=== PATIENT | female | born 1950 | race Caucasian/White ===

== ENCOUNTER 2023-08-05 14:02 | Outpatient (OUT) | payer MEDICARE, SELFPAY ==
--- NOTE | 2023-08-05 | XR_ITS ---
The [place] [address] Patient Name: GOYO FARLEY MRN: [id number] date: 1950 Sex: F Assigned Patient Location: Current Patient Location: Accession/Order Number: [id number] Exam Date: 08/05/2023 14:42 Report Date: 08/05/2023 15:54 At the request of: ILDA BREEN Procedure: XR foot LT min 3V STUDY: XR foot LT min 3V, [id number] HISTORY: RIGHT FOOT PAIN COMPARISON: None FINDINGS/IMPRESSION: Status post amputation of the first and second digits. There is no acute appearing osteolysis to suggest active osteomyelitis. If there is clinical concern for radiographically occult osteomyelitis then recommend MRI of the foot. Mild osteoarthritis at the first tarsometatarsal joint. Diffuse osseous demineralization. Extensive vascular calcifications are present. Mild Achilles insertional enthesopathy. Electronically authenticated by: ARPAN TRUJILLO Date: 08/05/2023 15:54
--- NOTE | 2023-08-05 08:20 | XR_ITS ---
The [place] [address] Patient Name: GOYO FARLEY MRN: [id number] date: 1950 Sex: F Assigned Patient Location: Current Patient Location: Accession/Order Number: [id number] Exam Date: 08/05/2023 14:00 Report Date: 08/05/2023 15:54 At the request of: ILDA BREEN Procedure: XR foot RT min 3V STUDY: XR foot LT min 3V, [id number] HISTORY: RIGHT FOOT PAIN COMPARISON: None FINDINGS/IMPRESSION: Status post amputation of the first and second digits. There is no acute appearing osteolysis to suggest active osteomyelitis. If there is clinical concern for radiographically occult osteomyelitis then recommend MRI of the foot. Mild osteoarthritis at the first tarsometatarsal joint. Diffuse osseous demineralization. Extensive vascular calcifications are present. Mild Achilles insertional enthesopathy. Electronically authenticated by: ARPAN TRUJILLO Date: 08/05/2023 15:54
== END 2023-08-05 14:03 | disposition home or self-care (01) ==
LOC: WC 14:03
PROVIDERS: PCP Podiatrist Foot & Ankle Surgery; Visit Provider Podiatrist Foot & Ankle Surgery
DX: M79.671 Pain in right foot (principal); L89.610 Pressure ulcer of right heel, unstageable; E11.21 Type 2 diabetes mellitus with diabetic nephropathy; E11.65 Type 2 diabetes mellitus with hyperglycemia; I82.401 Acute embolism and thrombosis of unspecified deep veins of right lower extremity; M81.6 Localized osteoporosis [Lequesne]; M17.9 Osteoarthritis of knee, unspecified
CPT/HCPCS: 73630; G0463

== ENCOUNTER 2023-09-16 13:24 | Outpatient (OUT) | payer MEDICARE, SELFPAY | END 2023-09-16 13:25 | disposition home or self-care (01) | LOC: WC 13:24 | PROVIDERS: PCP Podiatrist Foot & Ankle Surgery; Visit Provider Podiatrist Foot & Ankle Surgery | DX: E11.621 Type 2 diabetes mellitus with foot ulcer (principal); L97.412 Non-pressure chronic ulcer of right heel and midfoot with fat layer exposed | CPT/HCPCS: 11042 ==

== ENCOUNTER 2023-10-01 14:19 | Outpatient (OUT) | payer MEDICARE, SELFPAY ==
--- NOTE | 2023-10-01 14:21 | CA_ITS ---
The [facility] Test Date: 2023-10-01 Pat Name: GOYO FARLEY Department: Room: - Gender: Female Solutions Manager: Estefani Hammonds : 1950 Requested By: ILDA BREEN Order Number: [id number] Reading MD: HORTENCIA JAIME Interpretive Statements Biphasic doppler waveforms PVR waveforms with normal upstroke, amplitude and dicrotic notch. Right: - no significant pressure gradient between cuffs - abnormal ROSALIA Left: - no significant pressure gradient between cuffs - abnormal ROSALIA Impression - elevated indices left DP and B/L PT consistent with calcified, nocompressible arterial suero, which may underestimate the degree of arterial disease present - normal arterial evaluation of the lower extremities without hemodynamic impairment of the B/L lower extremities at rest. - evaluation is nondiagnostic due to elevated B/L ROSALIA and inability to fully compress the arteries at all level Electronically Signed On 10-02-2023 7:19:09 EDT by HORTENCIA JAIME
== END 2023-10-01 14:20 | disposition home or self-care (01) ==
LOC: CARD 14:19
PROVIDERS: PCP Podiatrist Foot & Ankle Surgery; Visit Provider Podiatrist Foot & Ankle Surgery
DX: R09.89 Other specified symptoms and signs involving the circulatory and respiratory systems (principal); I73.9 Peripheral vascular disease, unspecified
CPT/HCPCS: 93923

== ENCOUNTER 2023-10-14 11:27 | Outpatient (OUT) | payer MEDICARE, SELFPAY | END 2023-10-14 11:28 | disposition home or self-care (01) | LOC: WC 11:28 | PROVIDERS: PCP Podiatrist Foot & Ankle Surgery; Visit Provider Podiatrist Foot & Ankle Surgery | DX: E11.621 Type 2 diabetes mellitus with foot ulcer (principal); L97.412 Non-pressure chronic ulcer of right heel and midfoot with fat layer exposed | CPT/HCPCS: G0463 ==

== ENCOUNTER 2023-11-04 13:41 | Outpatient (OUT) | payer MEDICARE, SELFPAY | END 2023-11-04 13:42 | disposition home or self-care (01) | LOC: WC 13:42 | PROVIDERS: PCP Podiatrist Foot & Ankle Surgery; Visit Provider Podiatrist Foot & Ankle Surgery | DX: E11.621 Type 2 diabetes mellitus with foot ulcer (principal); L97.412 Non-pressure chronic ulcer of right heel and midfoot with fat layer exposed | CPT/HCPCS: 11042 ==

== ENCOUNTER 2023-11-28 11:04 | Outpatient (OUT) | payer MEDICARE, SELFPAY | END 2023-11-28 11:05 | disposition home or self-care (01) | LOC: WC 11:04 | PROVIDERS: PCP Podiatrist Foot & Ankle Surgery; Visit Provider Podiatrist Foot & Ankle Surgery | DX: E11.621 Type 2 diabetes mellitus with foot ulcer (principal); L97.412 Non-pressure chronic ulcer of right heel and midfoot with fat layer exposed; M86.471 Chronic osteomyelitis with draining sinus, right ankle and foot | CPT/HCPCS: G0463 ==

== ENCOUNTER 2023-12-02 12:51 | Outpatient (OUT) | payer MEDICARE, SELFPAY ==
[2023-12-02 14:06] LABS: Basophils Percent Auto 0.6 % (0.2-2.0); Eosinophils Absolute Auto 0.2 10^3/uL (0.0-0.7); Eosinophils Percent Auto 2.4 % (0.9-7.0); Hematocrit 36.1 % (36.0-48.0); Immature Granulocytes Abs Auto 0.01 10^3/uL (0.00-0.03); Immature Granulocytes Pct Auto 0.1 % (0.0-0.5); Lymphocytes Absolute Auto 1.3 10^3/uL (1.2-3.8); Lymphocytes Percent Auto 18.7 % (20.5-60.0); Mean Corpuscular HGB Conc 33.2 g/dL (29.9-35.2); Mean Corpuscular Hemoglobin 27.4 pg (26.7-34.0); Mean Corpuscular Volume 82.4 fL (81.0-99.0); Mean Platelet Volume 9.7 fL (9.5-13.5); Monocytes Absolute Auto 0.4 10^3/uL (0.3-0.8); Monocytes Percent Auto 5.7 % (1.7-12.0); Neutrophils Absolute Auto 4.8 10^3/uL (1.4-6.5); Neutrophils Percent Auto 72.5 % (43.0-75.0); Platelet Count 144 10^3/uL (150-450); Red Blood Count 4.38 10^6/uL (4.20-5.40); White Blood Count 6.7 10^3/uL (4.0-11.0)
[2023-12-02 14:44] LABS: Partial Thromboplastin Time 28.4 sec (22.3-36.2); Prothrombin Time 9.8 sec (9.0-11.6)
[2023-12-02 14:54] LABS: INR <0.93
[2023-12-02 17:03] LABS: Anion Gap 10.3; BUN Creatinine Ratio 19.3; Calcium 9.5 mg/dL (8.5-10.1); Carbon Dioxide 30.7 mmol/L (21.0-32.0); Chloride 98 mmol/L (98-107); Estimated GFR (African America 57 (>=60); Estimated GFR (Non-African Ame 47 (>=60); Glucose 268 mg/dL (74-106); Sodium 135 mmol/L (136-145)
[2023-12-02 17:14] LABS: Alanine Aminotransferase 24 U/L (14-59); Albumin Globulin Ratio 0.7; Albumin Level 3.1 g/dL (3.4-5.0); Alkaline Phosphatase 125 U/L (46-116); Aspartate Amino Transferase 19 U/L (15-37); Bilirubin Direct 0.1 mg/dL (0.0-0.2); Bilirubin Total 0.6 mg/dL (0.2-1.0); Globulin 4.2 g/dL; Total Protein 7.3 g/dL (6.4-8.2)
== END 2023-12-02 12:52 | disposition home or self-care (01) ==
PROVIDERS: PCP Internal Medicine; Visit Provider Podiatrist Foot & Ankle Surgery
DX: Z01.812 Encounter for preprocedural laboratory examination (principal); L97.519 Non-pressure chronic ulcer of other part of right foot with unspecified severity; M86.671 Other chronic osteomyelitis, right ankle and foot
CPT/HCPCS: 80048; 80076; 85025; 85610; 85730

== ENCOUNTER 2023-12-05 13:01 | Outpatient (OUT) | payer MEDICARE, SELFPAY ==
--- NOTE | 2023-12-04 14:16 | ECG_ITS ---
The [facility] Test Date: 2023-12-04 Pat Name: GOYO FARLEY Department: Room: - Gender: Female Engineer Intern: : 1950 Requested By: ILDA BREEN Order Number: [id number] Reading MD: HORTENCIA JAIME Measurements Intervals [place] Rate: 72 P: 73 [place]: 164 QRS: -51 QRSD: 139 T: 20 QT: 419 QTc: 461 Interpretive Statements SINUS RHYTHM RIGHT BUNDLE BRANCH BLOCK [120+ ms QRS DURATION, UPRIGHT V1, 40+ ms S IN I/aVL/V4/V5/V6] LEFT ANTERIOR FASCICULAR BLOCK [QRS AXIS <= -45, QR IN I, RS IN II] VOLTAGE CRITERIA FOR LVH [MEETS CRITERIA IN ONE OF: R(aVL), S(V1), R(V5), R(V5/V6)+S(V1)] No previous ECG available for comparison Electronically Signed On 12-05-2023 7:05:03 EST by HORTENCIA JAIME
== END 2023-12-05 13:02 | disposition home or self-care (01) ==
LOC: PST 13:01
PROVIDERS: PCP Internal Medicine; Visit Provider Podiatrist Foot & Ankle Surgery
DX: Z01.810 Encounter for preprocedural cardiovascular examination (principal); L97.519 Non-pressure chronic ulcer of other part of right foot with unspecified severity; M86.671 Other chronic osteomyelitis, right ankle and foot
CPT/HCPCS: 93005

== ENCOUNTER 2023-12-26 09:02 | Outpatient (OUT) | payer MEDICARE, SELFPAY | END 2023-12-26 09:03 | disposition home or self-care (01) | LOC: WC 09:02 | PROVIDERS: PCP Internal Medicine; Visit Provider Podiatrist Foot & Ankle Surgery | DX: E11.621 Type 2 diabetes mellitus with foot ulcer (principal); L97.412 Non-pressure chronic ulcer of right heel and midfoot with fat layer exposed | CPT/HCPCS: A6213; G0463 ==

== ENCOUNTER 2024-01-05 12:41 | Outpatient (OUT) | payer MEDICARE, SELFPAY ==
[2024-01-05 13:45] LABS: Basophils Percent Auto 0.3 % (0.2-2.0); Eosinophils Absolute Auto 0.2 10^3/uL (0.0-0.7); Eosinophils Percent Auto 3.3 % (0.9-7.0); Hematocrit 35.6 % (36.0-48.0); Hemoglobin 11.4 g/dL (12.0-16.0); Immature Granulocytes Abs Auto 0.03 10^3/uL (0.00-0.03); Immature Granulocytes Pct Auto 0.5 % (0.0-0.5); Lymphocytes Absolute Auto 1.6 10^3/uL (1.2-3.8); Lymphocytes Percent Auto 25.5 % (20.5-60.0); Mean Corpuscular Volume 84.4 fL (81.0-99.0); Mean Platelet Volume 9.5 fL (9.5-13.5); Monocytes Absolute Auto 0.5 10^3/uL (0.3-0.8); Monocytes Percent Auto 8.5 % (1.7-12.0); Neutrophils Absolute Auto 3.8 10^3/uL (1.4-6.5); Neutrophils Percent Auto 61.9 % (43.0-75.0); Platelet Count 177 10^3/uL (150-450); Red Blood Count 4.22 10^6/uL (4.20-5.40); Red Cell Distribution Width 14.7 % (11.0-15.0); White Blood Count 6.1 10^3/uL (4.0-11.0)
[2024-01-05 14:10] LABS: INR 0.95; Partial Thromboplastin Time 27.3 sec (22.3-36.2); Prothrombin Time 10.1 sec (9.0-11.6)
[2024-01-05 14:18] LABS: Anion Gap 8.6; BUN Creatinine Ratio 32.1; Calcium 9.4 mg/dL (8.5-10.1); Carbon Dioxide 34.6 mmol/L (21.0-32.0); Chloride 100 mmol/L (98-107); Estimated GFR (African America >60 (>=60); Estimated GFR (Non-African Ame 51 (>=60); Glucose 193 mg/dL (74-106); Potassium 4.2 mmol/L (3.5-5.1); Sodium 139 mmol/L (136-145)
[2024-01-06 14:19] LABS: Alanine Aminotransferase 26 U/L (14-59); Albumin Globulin Ratio 0.7; Albumin Level 2.9 g/dL (3.4-5.0); Alkaline Phosphatase 107 U/L (46-116); Aspartate Amino Transferase 21 U/L (15-37); Bilirubin Direct 0.1 mg/dL (0.0-0.2); Bilirubin Total 0.3 mg/dL (0.2-1.0); Globulin 4.1 g/dL
== END 2024-01-05 12:42 | disposition home or self-care (01) ==
LOC: PST 12:42
PROVIDERS: PCP Internal Medicine; Visit Provider Podiatrist Foot & Ankle Surgery
DX: Z01.812 Encounter for preprocedural laboratory examination (principal); L97.519 Non-pressure chronic ulcer of other part of right foot with unspecified severity; M86.671 Other chronic osteomyelitis, right ankle and foot
CPT/HCPCS: 80048; 80076; 85025; 85610; 85730

== ENCOUNTER 2024-01-19 12:47 | Observation (INO) | payer MEDICARE, SELFPAY ==
[2023-12-02 13:43] VITALS: BP 147/76; PULSE 69; RESP 16; TEMP 36.2; O2SAT 97; BMI 33.9
[2024-01-05 13:23] VITALS: BP 139/74; PULSE 82; RESP 20; TEMP 36.4; O2SAT 93; BMI 34.1
[2024-01-19] VITALS (17 sets, daily range): BP systolic 113–172; BP diastolic 49–109; PULSE 74–104; RESP 12–22; TEMP 36.1–36.7; O2SAT 91–98; BMI 34.4; BMI 34.1
[2024-01-19 06:26] LABS: Basophils Percent Auto 0.5 % (0.2-2.0); Eosinophils Absolute Auto 0.2 10^3/uL (0.0-0.7); Eosinophils Percent Auto 2.7 % (0.9-7.0); Hematocrit 33.8 % (36.0-48.0); Hemoglobin 10.8 g/dL (12.0-16.0); Immature Granulocytes Abs Auto 0.02 10^3/uL (0.00-0.03); Immature Granulocytes Pct Auto 0.3 % (0.0-0.5); Lymphocytes Absolute Auto 1.7 10^3/uL (1.2-3.8); Lymphocytes Percent Auto 26.2 % (20.5-60.0); Mean Corpuscular Hemoglobin 26.9 pg (26.7-34.0); Mean Corpuscular Volume 84.3 fL (81.0-99.0); Mean Platelet Volume 8.9 fL (9.5-13.5); Monocytes Absolute Auto 0.4 10^3/uL (0.3-0.8); Monocytes Percent Auto 6.9 % (1.7-12.0); Neutrophils Absolute Auto 4.1 10^3/uL (1.4-6.5); Neutrophils Percent Auto 63.4 % (43.0-75.0); Platelet Count 117 10^3/uL (150-450); Red Blood Count 4.01 10^6/uL (4.20-5.40); Red Cell Distribution Width 14.6 % (11.0-15.0); White Blood Count 6.4 10^3/uL (4.0-11.0)
[2024-01-19] MEDS: LACTATED RINGER'S SOLUTION 1,000 ML 50 ML IV (07:34)
[2024-01-19] MEDS: CEFAZOLIN SODIUM/DEXTROSE,ISO 2 GM/50 ML PIGGYBACK IV (07:39)
--- NOTE | 2024-01-19 07:43 | PC.NURSE ---
0635- Patient states that she has been depressed since her 6 years ago. She states that she knows she will never get to go home again and will be stuck in a retirement. She has no family members that help her.
--- NOTE | 2024-01-19 07:56 | XR_ITS ---
The [address] [address] Patient Name: GOYO FARLEY MRN: [id number] date: 1950 Sex: F Assigned Patient Location: [place] Current Patient Location: [place] Accession/Order Number: [id number] Exam Date: 01/19/2024 11:37 Report Date: 01/20/2024 14:56 At the request of: ILDA BREEN Procedure: XR foot RT min 3V PROCEDURE: XR foot RT min 3V HISTORY: heel ulcer, chronic osteomyelitis calcaneus COMPARISON: XR foot right 08/05/2023 FINDINGS: BONES:Prior amputation of the first and second toes at the metatarsophalangeal joint level. Resection of a portion of the posterior margin of the calcaneus. SOFT TISSUES:Skin changes and wound VAC overlying calcaneus. EFFUSION:None visible. OTHER: Negative. XR/XR foot RT min 3V IMPRESSION: 1. Postoperative changes of the calcaneus and posterior soft tissues. 2. Remote prior resection of the first and second toes. Electronically authenticated by: HIEU GARNER Date: 01/20/2024 14:56
--- NOTE | 2024-01-19 08:03 | P.ORON_ITS ---
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 She underwent right 1st and 2nd toe amputations secondary to nonhealing ulcer and infection on 01/22/[address] Baugh at [facility]. She was undergoing local wound care for right heel ulcer for nearly a year however no substantial improvement was noted. On examination her wound was located in the posterior heel and probe deeply and there was concern for bone involvement. MRI was obtained in August 2023 and there was bone marrow edema near the Achilles attachment concerning for osteomyelitis. She had undergone IV antibiotics previously but seemingly no bone culture was obtained and as stated previously wound did not improve. I discussed at length the potential risks and benefits of surgical versus nonsurgical treatment and given her failure to improve as well as concern for deep chronic infection I recommended the above procedures. Once medical clearance was obtained she wished to proceed with surgical intervention and was originally scheduled in December however she contra cted COVID therefore surgery was delayed further until today. The preoperative holding area she denies pain, erythema, purulent drainage to the right heel and relates that she has not observed any evidence of acute local infection. INTRAOPERATIVE FINDINGS: preoperative wound measurements: 2.6 x 2.3 x 0.3 cm with exposed Achilles tendon. Posterior heel was covered by a thin layer of fibrin granular tissue. No acute signs of infection were noted. 1 cm area of discolored calcaneus on posterior aspect at the Achilles insertion. Bone of the calcaneus was however soft and consistent with osteopenia but of normal color once the posterior portion was removed. Once questionable bone was excised debridement was performed to healthy bleeding bone. the Achilles tendon also required excision due to a fibrotic and nonviable appearance. PROCEDURE IN DETAIL: Patient was identified in preoperative holding and correct side and site were marked and consent was obtained. Preoperative antibiotics were started in patient was brought back to the operating theater and was intubated per anesthesia. Tourniquet was applied. Patient was then transferred to the operative table in a well-padded prone position however the patient vomited and after conversing with anesthesia was determined it would be safer to place the patient in a lateral decubitus position. She was transferred back to her preoperative bed and beanbag was placed onto the operative table. She was then placed onto the operative table and well-padded lateral decubitus position. The operative extremity was prepped and draped in usual sterile fashion. Formal timeout was performed. Operative extremity was exsanguinated and tourniquet inflated. With attention to the heel ulcer, the wound was excised in 3-1 ellipse oriented superior to inferior. The Achilles tendon was clearly involved and there was a thin layer of fibrin granular tissue overlying the calcaneus all of which were excised. The Achilles tendon was excised and the incision was extended proximally to ensure any questionable tendon/soft tissue was removed. There was no acute signs of infection however the tendon was nonviable at its attachment to the calcaneus extending 2 cm proximally. Once all involved tendon was excised dissection was taken inferiorly and the ellipse was extended to the plantar heel. Combination sharp and blunt dissection with all bleeders being coagulated gained access to the calcaneus tuberosity. A portion of the posterior calcaneal tuberosity was then removed with osteotomes. All nonviable soft tissue and bone were excised and the calcaneus was debrided to healthy bleeding bone. Calcaneus was then contoured with a rasp and the surgical site was irrigated with 3L of saline on pulse lavage. tourniquet was deflated and all remaining tissues including calcaneus bled appropriately. Due to continuous oozing from all aspects of the surgical site hemostatic powder (nu) and Gelfoam soaked in thrombin was placed on the surgical site and a temporary pressure dressing was applied and left in place for over ten minutes. The pressure dressing was removed and hemostasis was obtained. Gloves were changed and dirty instruments were passed off the field. A clean rongeur was used to obtain a specimen from the remaining bone. The superior and inferior most aspects of the wound were closed however skin tension prevented full closure therefore decision was made to place an external soft tissue chief dispatcher & allogenic skin substitute. Six percutaneous anchors were placed around the periphery of the wound accordingly and were secured with st aples. A theragenesis skin substitute was place onto the exposed bone & temporarily held in place by gilmer. The tensioning controller was then placed on the central anchor and the tension line was then wrapped around the remaining five anchors in a Y-M fashion. The tension controller was then used to tightening the line until the internal clutch mechanism was engaged. the previously placed gilmer were removed from the skin substitute graft. the skin substitute was then reoriented to cover the wound base and was stapled to the periwound skin. the tension controller was then held in place over the anterior lateral ankle with a drain stitch. 4 x 4 gauze was placed under the tension controller. A dry sterile dressing consisting of Adaptic on the skin substitute followed by 4 x 4 gauze, ABDs, and Kerlix were applied. Multiple layers of cast padding were then applied to ensure all bony prominences were well-padded. A plaster posterior splint was then applied which was held in place by Adolfo wraps. Capillary refill time to all digits was evaluated and had appropriate response. Patient tolerated the procedure and anesthesia well transferred to the recovery room with vital signs stable and brisk capillary refill to the operative toes. POSTOPERATIVE PLAN: Transfer to med/surg under hospitalist's care toe-touch weightbearing operative foot/ankle Ice and elevation Katelyn-op antibiotics, multimodal pain medication and DVT prophylaxis ordered Consults: physical therapy & social media project manager Estimated LOS 2-3 nights Will follow Implants: Dermaclose tissue chief dispatcher TheraGenesis skin substitute Anesthesia: General-ET Surgeon: Stanislaw Barbosa Estimated blood loss (mL): 150 Tourniquet time (min): 19 Pathology: other (Achilles tendon and calcaneus) Condition: stable Disposition: PACU
[2024-01-19] MEDS: LIDOCAINE HCL 1% 100 MG/10 ML MDV 20 ML INJ (09:00)
[2024-01-19] MEDS: BUPIVACAINE HCL 0.5% PF 50 MG/10 ML VIAL 20 ML INJ (09:18)
[2024-01-19] MEDS: THROMBIN (RECOMBINANT) 5,000 UNIT VIAL 5000 UNIT TOPICAL (09:30)
[2024-01-19] MEDS: SURGIFOAM GEL SPONGE SIZE 100 1 EACH TOPICAL (09:33)
[2024-01-19] MEDS: HYDRALAZINE HCL 20 MG/ML VIAL 10 MG IVP (14:19)
--- NOTE | 2024-01-19 15:04 | P.PN_ITS ---
<Statement entered by Dayo Benz MD - 01/19/24 19:18> Patient seen and examined, agree with assessment and plan below. 73 y/o female admitted after foot surgery. Resumed home medication. Continue IV antibiotics and await cultures. Monitor labs. NWB to RLE. Start PT/OT and likely will need SNF upon discharge. Diagnosis: 1. Diabetic foot ulcer 2. Chronic osteomyelitis 3. Oral bobbi 4. DM2 5. HTN 6. DM2 with polyneuropathy 7. Hx DVT 8. Parkonson's 9. Anemia of CKD 10. CKD 3a Progress Note: Subjective Subjective Interval history: 01/19/24 1155 POD#0 Right partial calcanectomy, application of soft tissue golf course mechanic & allogenic skin substitute per Dr Barbosa this morning. Pt w/ hx of poorly controlled DM2, non-healing DM wounds, and osteomyelitis of the R heel. Please see Dr Barbosa's H&P regarding the pt's clinical course leading to this operative procedure. Admitted in observation to the hospitalist service post operatively. The pt is recently arrived on the medical floor from PACU. She is somnolent, but arouses easily to voice. She completely denies post op pain and notes advanced peripheral neuropathy of the lower extremities. She denies CP, SOB, dizziness, or N/V. Exam Constitutional Vital Signs, click to edit/add: Last Vital Signs Temp 97 F L 01/19/24 12:47 Pulse 93 H 01/19/24 14:47 Resp 18 01/19/24 14:47 BP 113/62 01/19/24 14:47 Pulse Ox 93 L 01/19/24 14:47 O2 Del Method Room Air 01/19/24 14:47 Common normals: no apparent distress and oriented x3 General appearance: cooperative [facility] Common normals: normocephalic, head/scalp atraumatic and hearing grossly normal bilaterally Eye Common normals: PERRL, EOMs intact bilaterally, conjunctivae normal and no scleral icterus General eye: normal appearance of both eyes Chest Common normals: inspection of chest normal Chest: symmetrical chest wall rise Respiratory Common normals: normal respiratory effort, no use of accessory muscles and clear to auscultation bilaterally Cardio Common normals: regular rate, regular rhythm, S1 normal heart sound, S2 normal heart sound, no murmurs and peripheral pulses 2+ throughout GI Common normals: Normal to inspection, nondistended, normoactive bowel sounds present, soft to palpation, non-tender and no hepatosplenomegaly Bladder/kidney exam: bladder normal to palpation Extremity Common normals: normal to inspection and no calf tenderness General: no clubbing, no cyanosis and no edema Right lower extremity: foot and digits (Large surgical drsg D&I) Right foot and digits: other (chronic paresthesia of the R foot) Neuro Common normals: CN's II-XII intact bilaterally, moves all extremities, no focal motor deficits and no sensory deficits noted Progress Note: Objective Labs Labs: Short CBC 01/19/24 Range/Units 06:18 WBC 6.4 (4.0-11.0) 10^3/uL Hgb 10.8 L (12.0-16.0) g/dL Hct 33.8 L (36.0-48.0) % Plt Count 117 L (150-450) 10^3/uL Progress Note: A&P Assessment and Plan (1) S/P foot surgery, right: Assessment and Plan: ACUTE * Adm observation * Defer post op IVF, pain management, ABX, DVT prophylaxis, PT/OT orders, WB instructions to the Podiatry service * Medical management per hospitalist service (2) Oral bobbi: Assessment and Plan: ACUTE * Oral thrush noted by anesthesiology in surgery * Pt reports onset of sore throat x 3 days. Recent ABX for UTI * Start Nystatin S&S QID, continue at d/c (3) Chronic osteomyelitis of right foot: Assessment and Plan: CHRONIC * Definitive operative management noted above (4) Autoimmune hepatitis: Assessment and Plan: CHRONIC * CMP in AM to monitor liver fx * Pt refuses all tylenol products (5) Depression: Assessment and Plan: CHRONIC * Continue home sertraline (6) Diabetes: Assessment and Plan: CHRONIC * Continue home NPH BID * ACHS glucometer checks * Med CC diet * Med dose SSI for glucose correction (7) Parkinsons: Assessment and Plan: CHRONIC * Continue home Azathioprine (8) Hypertension: Assessment and Plan: CHRONIC * Continue home losartan * PRN hydralazine IVP (9) Stage 3a chronic kidney disease (CKD): Assessment and Plan: CHRONIC * CMP in AM to monitor
[2024-01-19] MEDS: INSULIN ASPART 300 UNIT/3 ML PEN SUBQ ×2 (15:20→21:15)
--- NOTE | 2024-01-19 15:59 | SWNOTE1 ---
SW met with pt to discuss dc needs. Pt lives at [facility]. She has been there for about 5 months. Her goal is to return to [place] once she is done with rehab. She voiced she went to rehab at [facility], but she felt it was terrible and does not want to go back. SW and pt reviewed list from medicare.gov with star ratings. Her first choice is [facility], her second choice is [facility] in [place], and her third choice is [facility] in [place]. SW to call [facility] to see if they take [facility] medicare. Pt is a precert.
--- NOTE | 2024-01-19 16:10 | SWNOTE1 ---
VERNON left message at [facility]. [facility] voiced they do take [facility] medicare. Pt's first choice is [facility]. No precert would be able to be started today, will need PT/OT to assess for precert. VERNON hopeful to have [facility]ic[facility] in [facility].
[2024-01-19] MEDS: NYSTATIN 500,000 UNIT/5 ML ORAL.SUSP 500000 UNIT PO ×2 (17:07→21:15)
[2024-01-19 20:54] LABS: Glucometer 427 mg/dL (74-106)
[2024-01-19] MEDS: GLUCERNA 1.5 CAL 237 ML LIQUID PO (21:16)
[2024-01-19] MEDS: CEFAZOLIN SODIUM/DEXTROSE,ISO 1 GM/50 ML IV.SOLN IV (21:16)
[2024-01-19] MEDS: TRAZODONE HCL 50 MG TABLET 25 MG PO (22:18)
[2024-01-20 04:57] VITALS: BP 118/62; PULSE 100; RESP 18; TEMP 36.8; O2SAT 91
[2024-01-20] MEDS: NYSTATIN 500,000 UNIT/5 ML ORAL.SUSP 500000 UNIT PO ×4 (05:06→21:29)
[2024-01-20 05:31] LABS: Hematocrit 30.4 % (36.0-48.0); Hemoglobin 9.2 g/dL (12.0-16.0); Immature Granulocytes Abs Auto 0.04 10^3/uL (0.00-0.03); Immature Granulocytes Pct Auto 0.6 % (0.0-0.5); Lymphocytes Absolute Auto 0.7 10^3/uL (1.2-3.8); Lymphocytes Percent Auto 9.9 % (20.5-60.0); Mean Corpuscular HGB Conc 30.3 g/dL (29.9-35.2); Mean Corpuscular Hemoglobin 26.4 pg (26.7-34.0); Mean Corpuscular Volume 87.4 fL (81.0-99.0); Mean Platelet Volume 9.2 fL (9.5-13.5); Monocytes Absolute Auto 0.4 10^3/uL (0.3-0.8); Monocytes Percent Auto 5.3 % (1.7-12.0); Neutrophils Absolute Auto 5.7 10^3/uL (1.4-6.5); Neutrophils Percent Auto 84.2 % (43.0-75.0); Platelet Count 119 10^3/uL (150-450); Red Blood Count 3.48 10^6/uL (4.20-5.40); Red Cell Distribution Width 15.2 % (11.0-15.0); White Blood Count 6.8 10^3/uL (4.0-11.0)
[2024-01-20 05:52] LABS: Estimated Average Glucose 183 mg/dL
[2024-01-20 06:05] LABS: Alanine Aminotransferase 13 U/L (14-59); Albumin Globulin Ratio 0.7; Albumin Level 2.5 g/dL (3.4-5.0); Alkaline Phosphatase 78 U/L (46-116); Anion Gap 15.6; Aspartate Amino Transferase 14 U/L (15-37); BUN Creatinine Ratio 27.1; Bilirubin Total 0.2 mg/dL (0.2-1.0); Calcium 8.8 mg/dL (8.5-10.1); Carbon Dioxide 25.3 mmol/L (21.0-32.0); Chloride 101 mmol/L (98-107); Estimated GFR (African America 49 (>=60); Estimated GFR (Non-African Ame 41 (>=60); Globulin 3.7 g/dL; Glucose 399 mg/dL (74-106); Potassium 4.9 mmol/L (3.5-5.1); Sodium 137 mmol/L (136-145); Total Protein 6.2 g/dL (6.4-8.2)
[2024-01-20] MEDS: INSULIN ASPART 300 UNIT/3 ML PEN SUBQ ×4 (08:38→21:28)
[2024-01-20] MEDS: CEFAZOLIN SODIUM/DEXTROSE,ISO 1 GM/50 ML IV.SOLN IV ×2 (09:00→20:50)
[2024-01-20] MEDS: CHOLECALCIFEROL (VITAMIN D3) 125 MCG/5000 UNIT TABLET PO (09:17)
[2024-01-20] MEDS: AZATHIOPRINE 50 MG TABLET PO (09:17)
[2024-01-20] MEDS: EZETIMIBE 10 MG TABLET PO (09:17)
[2024-01-20] MEDS: GLUCERNA 1.5 CAL 237 ML LIQUID PO ×2 (09:17→20:49)
[2024-01-20] MEDS: TORSEMIDE 20 MG TABLET PO (09:17)
[2024-01-20] MEDS: LOSARTAN POTASSIUM 50 MG TABLET 100 MG PO (09:18)
[2024-01-20] MEDS: PHENAZOPYRIDINE 100 MG TABLET 200 MG PO (09:18)
[2024-01-20] MEDS: ASCORBIC ACID 500 MG TABLET 1000 MG PO (09:18)
[2024-01-20] MEDS: ZINC GLUCONATE 50 MG TABLET PO (09:18)
[2024-01-20] MEDS: SENNOSIDES 8.6 MG TABLET 17.1999999999999993 MG PO (09:18)
[2024-01-20] MEDS: SERTRALINE HCL 50 MG TABLET PO (09:18)
--- NOTE | 2024-01-20 09:51 | SWNOTE1 ---
SW spoke to [facility] and they do not take [facility]. SW called [facility] and they have openings and will review referral. SW sent face sheet, progress notes, surgery notes, med list, vitals, labs, and any PT/OT notes.
[2024-01-20] MEDS: HEPARIN SODIUM (PORCINE) 5,000 UNIT/ML VIAL 5000 UNIT SUBQ ×2 (10:10→20:50)
--- NOTE | 2024-01-20 10:31 | CM.NOTE ---
Rounds made with Dr. Benz, discussed with pt about discharging to skilled facility when medically stable. Pt is in agreement, SW working on setting this up.
--- NOTE | 2024-01-20 10:41 | CM.NOTE ---
Medicare Outpatient Observation Notice discussed with pt, pt verbalizes understanding and signs paper. Original given to pt and copy placed on pt's chart.
--- NOTE | 2024-01-20 11:44 | PM.PN ---
Progress Note: Subjective Subjective Interval history: Patient examined evaluated at bedside this a.m. resting comfortably. POD #1 s/p right partial calcanectomy, application of soft tissue health and safety coordinator and allogenic skin substitute DOS 01/19/2024. Splint CDI with right heel well offloaded with pillows. Denies any pain at time of visit, denies any other acute lower extremity complaints and denied any constitutional symptoms at time of visit. Exam Narrative Exam Narrative: RLE splint left CDI. CFT intact to digits. Skin temperature warm and symmetric proximal and distal to dressing. No erythema or ecchymosis. Light touch and gross sensation diminished consistent with baseline. No palpatory tenderness elicited. Compartments are soft and compressible, no pain calf or thigh compression. No open lesions proximal or distal dressing. Constitutional Vital Signs, click to edit/add: Last Vital Signs Temp 98.2 F 01/20/24 04:57 Pulse 100 H 01/20/24 04:57 Resp 18 01/20/24 04:57 BP 118/62 01/20/24 04:57 Pulse Ox 91 L 01/20/24 04:57 O2 Del Method Room Air 01/20/24 04:57 Progress Note: Objective Labs Labs: Short CBC 01/20/24 Range/Units 04:56 WBC 6.8 (4.0-11.0) 10^3/uL Hgb 9.2 L (12.0-16.0) g/dL Hct 30.4 L (36.0-48.0) % Plt Count 119 L (150-450) 10^3/uL BMP 01/20/24 04:56 Sodium 137 Potassium 4.9 Chloride 101 Carbon Dioxide 25.3 BUN 35.0 H Creatinine 1.29 H Glucose 399 H Calcium 8.8 Liver Function 01/20/24 Range/Units 04:56 Total Bilirubin 0.2 (0.2-1.0) mg/dL AST 14 L (15-37) U/L ALT 13 L (14-59) U/L Alkaline Phosphatase 78 (46-116) U/L Albumin 2.5 L (3.4-5.0) g/dL Progress Note: A&P Assessment and Plan (1) S/P foot surgery, right: (2) Oral brook: (3) Chronic osteomyelitis of right foot: (4) Autoimmune hepatitis: (5) Depression: (6) Diabetes: (7) Parkinsons: (8) Hypertension: (9) Stage 3a chronic kidney disease (CKD): Plan Patient examined evaluated. All findings discussed with patient all questions answered to patient's satisfaction. Pertinent labs and imaging reviewed. Continue to monitor CBC, may hold heparin if platelets fall below 100,000. RLE splint left CDI. May toe-touch weightbearing for transfers. Nonweightbearing to right heel. PT eval pending for today. Anticipate DC to SNF, awaiting acceptance. Continue IV Ancef as well as p.o. nystatin for oral Brook. Stable to DC from podiatry's perspective once accepted to SNF with 1 week follow-up at wound care center. Rest per primary, call with questions or concerns.
--- NOTE | 2024-01-20 13:10 | P.PN_ITS ---
<Statement entered by Dayo Benz MD - 01/20/24 19:32> Patient seen and examined, agree with assessment and plan below. Doing well after foot surgery and pain controlled. Working with PT/OT. Continue antibiotics. Information sent to insurance for prior auth. Diagnosis: 1. Diabetic foot ulcer 2. Chronic osteomyelitis 3. Oral bobbi 4. DM2 5. HTN 6. DM2 with polyneuropathy 7. Hx DVT 8. Parkonson's 9. Anemia of CKD 10. CKD 3a Progress Note: Subjective Subjective Interval history: Patient examined evaluated at bedside this a.m. resting comfortably. POD #1 s/p right partial calcanectomy, application of soft tissue ui application developer and allogenic skin substitute on 01/19/2024. Splint CDI with right heel well offloaded with pillows. Denies any pain at time of visit, denies any other acute lower extremity complaints and denied any constitutional symptoms including no CP, SO B, N/V. She attempted ambulation with PT today for the first time and was able to take a few steps while maintaining TTWB to the RLE. She will require SNF placement at discharge as she is not independent w/ ADLs/ambulation. Exam Constitutional Vital Signs, click to edit/add: Last Vital Signs Temp 98.2 F 01/20/24 04:57 Pulse 100 H 01/20/24 04:57 Resp 18 01/20/24 04:57 BP 118/62 01/20/24 04:57 Pulse Ox 91 L 01/20/24 04:57 O2 Del Method Room Air 01/20/24 04:57 Common normals: no apparent distress, oriented x3 and alert General appearance: cooperative Orientation/consciousness: Yes awake HENND Common normals: normocephalic, head/scalp atraumatic and hearing grossly normal bilaterally Eye Common normals: PERRL, EOMs intact bilaterally, conjunctivae normal and no scleral icterus General eye: normal appearance of both eyes Chest Common normals: inspection of chest normal Chest: symmetrical chest wall rise Respiratory Common normals: normal respiratory effort, no use of accessory muscles and clear to auscultation bilaterally Effort & inspection: able to speak in complete sentences Cardio Common normals: regular rate, regular rhythm, S1 normal heart sound, S2 normal heart sound, no murmurs and peripheral pulses 2+ throughout GI Common normals: Normal to inspection, nondistended, normoactive bowel sounds present, soft to palpation, non-tender and no hepatosplenomegaly Bladder/kidney exam: bladder normal to palpation Extremity Common normals: normal to inspection and no calf tenderness General: no clubbing, no cyanosis and no edema Right lower extremity: foot and digits (Post op drsg/splint in place. D&I) Neuro Common normals: CN's II-XII intact bilaterally, moves all extremities and no focal motor deficits Sensory exam: sensory level loss detected (Bilat feet 2/2 chronic neuropathy) Psych Common normals: mental status grossly normal Progress Note: Objective Labs Labs: Short CBC 01/20/24 Range/Units 04:56 WBC 6.8 (4.0-11.0) 10^3/uL Hgb 9.2 L (12.0-16.0) g/dL Hct 30.4 L (36.0-48.0) % Plt Count 119 L (150-450) 10^3/uL BMP 01/20/24 04:56 Sodium 137 Potassium 4.9 Chloride 101 Carbon Dioxide 25.3 BUN 35.0 H Creatinine 1.29 H Glucose 399 H Calcium 8.8 Liver Function 01/20/24 Range/Units 04:56 Total Bilirubin 0.2 (0.2-1.0) mg/dL AST 14 L (15-37) U/L ALT 13 L (14-59) U/L Alkaline Phosphatase 78 (46-116) U/L Albumin 2.5 L (3.4-5.0) g/dL Progress Note: A&P Assessment and Plan (1) S/P foot surgery, right: Assessment and Plan: ACUTE * POD#1 - R partial calcanectomy, application of soft tissue ui application developer & alloge ernestina skin substitute per Dr Barbosa on 01/19/24 * Defer post op IVF, pain management, ABX, DVT prophylaxis, PT/OT orders, WB instructions to the Podiatry service * Medical management per hospitalist service (2) Oral bobbi: Assessment and Plan: ACUTE * Continue Nystatin S&S QID, continue at d/c (3) Chronic osteomyelitis of right foot: Assessment and Plan: CHRONIC * Definitive operative management noted above (4) Autoimmune hepatitis: Assessment and Plan: CHRONIC * CMP daily to monitor liver fx * Pt refuses all tylenol products (5) Depression: Assessment and Plan: CHRONIC * Continue home sertraline (6) Diabetes: Assessment and Plan: CHRONIC * Poorly controlled w/ hyperglycemia * A1C 8.0 * Pt reports previous A1C was 6.0. She c/o of poor diet at the SNF that has mostly high carb options * Continue home NPH BID * Consider converting to lantus pending clinical course * ACHS glucometer checks * Med CC diet * Increase to high dose SSI for glucose correction d/t uncontrolled hyperglycemia (7) Parkinsons: Assessment and Plan: CHRONIC * Continue home Azathioprine (8) Hypertension: Assessment and Plan: CHRONIC * Continue home losartan * PRN hydralazine IVP (9) Stage 3a chronic kidney disease (CKD): Assessment and Plan: CHRONIC * Stable at baseline * CMP daily
[2024-01-20 13:19] VITALS: BP 142/68; PULSE 95; RESP 16; TEMP 37.1; O2SAT 93
--- NOTE | 2024-01-20 13:28 | SWNOTE1 ---
SW received call from [facility] and they wanted to know if she was having pain and getting pain meds and if plan was to discharge on IV pain meds. SW to reach out to doctor and nursing.
--- NOTE | 2024-01-20 14:27 | PC.NURSE ---
patient refused assistance with restroom at this time
--- NOTE | 2024-01-20 14:42 | SWNOTE1 ---
VERNON spoke to nursing and pt has not received anything for pain at this time. VERNON called over to wound center to speak with fellow, had to wait for call back. He did call VERNON back and pt will be switched to oral meds at discharge. VERNON called Zayda at [facility] back and she will update the clinical team and get back to VERNON. VERNON sent upated physician notes from today to [facility].
--- NOTE | 2024-01-20 15:47 | SWNOTE1 ---
SW received call from Zayda at [facility] and they are able to accept and they are starting precert.
[2024-01-20 19:33] VITALS: BP 113/54; PULSE 93; RESP 16; TEMP 36.9; O2SAT 91
[2024-01-20 20:22] LABS: Glucometer 350 mg/dL (74-106)
[2024-01-20] MEDS: OXYCODONE HCL 5 MG TABLET PO (21:30)
[2024-01-21] VITALS (11 sets, daily range): BP systolic 78–135; BP diastolic 51–70; PULSE 70–90; RESP 16; TEMP 36.4–36.8; O2SAT 84–98
[2024-01-21 04:56] LABS: Basophils Percent Auto 0.3 % (0.2-2.0); Eosinophils Absolute Auto 0.1 10^3/uL (0.0-0.7); Eosinophils Percent Auto 0.7 % (0.9-7.0); Hematocrit 27.9 % (36.0-48.0); Hemoglobin 8.5 g/dL (12.0-16.0); Immature Granulocytes Abs Auto 0.03 10^3/uL (0.00-0.03); Immature Granulocytes Pct Auto 0.4 % (0.0-0.5); Lymphocytes Absolute Auto 2.2 10^3/uL (1.2-3.8); Mean Corpuscular HGB Conc 30.5 g/dL (29.9-35.2); Mean Corpuscular Hemoglobin 26.3 pg (26.7-34.0); Mean Corpuscular Volume 86.4 fL (81.0-99.0); Mean Platelet Volume 9.5 fL (9.5-13.5); Monocytes Absolute Auto 0.6 10^3/uL (0.3-0.8); Monocytes Percent Auto 7.3 % (1.7-12.0); Neutrophils Absolute Auto 4.9 10^3/uL (1.4-6.5); Neutrophils Percent Auto 63.3 % (43.0-75.0); Platelet Count 116 10^3/uL (150-450); Red Blood Count 3.23 10^6/uL (4.20-5.40); Red Cell Distribution Width 15.4 % (11.0-15.0); White Blood Count 7.7 10^3/uL (4.0-11.0)
[2024-01-21 05:29] LABS: Alanine Aminotransferase 12 U/L (14-59); Albumin Globulin Ratio 0.7; Albumin Level 2.6 g/dL (3.4-5.0); Alkaline Phosphatase 90 U/L (46-116); Anion Gap 9.6; Aspartate Amino Transferase 12 U/L (15-37); BUN Creatinine Ratio 38.7; Bilirubin Total 0.3 mg/dL (0.2-1.0); Calcium 8.9 mg/dL (8.5-10.1); Chloride 99 mmol/L (98-107); Estimated GFR (African America 51 (>=60); Estimated GFR (Non-African Ame 42 (>=60); Globulin 3.6 g/dL; Glucose 262 mg/dL (74-106); Potassium 4.6 mmol/L (3.5-5.1); Sodium 136 mmol/L (136-145); Total Protein 6.2 g/dL (6.4-8.2)
[2024-01-21] MEDS: NYSTATIN 500,000 UNIT/5 ML ORAL.SUSP 500000 UNIT PO ×4 (05:54→21:34)
[2024-01-21] MEDS: OXYCODONE HCL 5 MG TABLET PO (05:58)
[2024-01-21 07:45] LABS: Glucometer 327 mg/dL (74-106)
--- NOTE | 2024-01-21 08:35 | PM.PN ---
Progress Note: Subjective Subjective Interval history: Patient examined evaluated at bedside this a.m. resting comfortably. POD #2 s/p right partial calcanectomy, application of soft tissue chicken sexer and allogenic skin substitute DOS 01/19/2024. Splint CDI with right heel well offloaded with pillows. Admits to increase in pain to R foot and sore throat overnight and after thereapy yesterday, currently controlled and denies any pain at time of visit, denies any other acute lower extremity complaints and denied any constitutional symptoms at time of visit. Exam Narrative Exam Narrative: RLE splint left CDI. CFT intact to digits. Skin temperature warm and symmetric proximal and distal to dressing. No erythema or ecchymosis. Light touch and gross sensation diminished consistent with baseline. No palpatory tenderness elicited. Compartments are soft and compressible, no pain calf or thigh compression. No open lesions proximal or distal dressing. Constitutional Vital Signs, click to edit/add: Last Vital Signs Temp 98.0 F 01/21/24 03:42 Pulse 90 01/21/24 03:42 Resp 16 01/21/24 03:42 BP 135/70 01/21/24 03:42 Pulse Ox 96 01/21/24 03:42 O2 Del Method Room Air 01/21/24 03:42 Progress Note: Objective Labs Labs: Short CBC 01/21/24 Range/Units 04:21 WBC 7.7 (4.0-11.0) 10^3/uL Hgb 8.5 L (12.0-16.0) g/dL Hct 27.9 L (36.0-48.0) % Plt Count 116 L (150-450) 10^3/uL BMP 01/21/24 04:21 Sodium 136 Potassium 4.6 Chloride 99 Carbon Dioxide 32.0 BUN 48.0 H Creatinine 1.24 H Glucose 262 H Calcium 8.9 Liver Function 01/21/24 Range/Units 04:21 Total Bilirubin 0.3 (0.2-1.0) mg/dL AST 12 L (15-37) U/L ALT 12 L (14-59) U/L Alkaline Phosphatase 90 (46-116) U/L Albumin 2.6 L (3.4-5.0) g/dL Progress Note: A&P Assessment and Plan (1) S/P foot surgery, right: (2) Oral brook: (3) Chronic osteomyelitis of right foot: (4) Autoimmune hepatitis: (5) Depression: (6) Diabetes: (7) Parkinsons: (8) Hypertension: (9) Stage 3a chronic kidney disease (CKD): Plan Patient examined evaluated. All findings discussed with patient all questions answered to patient's satisfaction. Pertinent labs and imaging reviewed. Continue to monitor CBC, may hold heparin if platelets fall below 100,000. RLE splint left CDI until f/u. May toe-touch weightbearing for transfers. Nonweightbearing to right heel. Cont PT Anticipate DC to SNF, precert pending. Continue IV Ancef as well as p.o. nystatin for oral Brook. Plan to DC on PO doxycycline 100 BID for 14 days Stable to DC from podiatry's perspective once accepted to SNF with 1 week follow-up at wound care center. Rest per primary, call with questions or concerns.
[2024-01-21] MEDS: CEFAZOLIN SODIUM/DEXTROSE,ISO 1 GM/50 ML IV.SOLN IV ×2 (08:37→19:23)
[2024-01-21] MEDS: GLUCERNA 1.5 CAL 237 ML LIQUID PO (08:38)
[2024-01-21] MEDS: HEPARIN SODIUM (PORCINE) 5,000 UNIT/ML VIAL 5000 UNIT SUBQ ×2 (08:38→21:34)
[2024-01-21] MEDS: SENNOSIDES 8.6 MG TABLET 17.1999999999999993 MG PO (08:39)
[2024-01-21] MEDS: ASCORBIC ACID 500 MG TABLET 1000 MG PO (08:39)
[2024-01-21] MEDS: PHENAZOPYRIDINE 100 MG TABLET 200 MG PO (08:39)
[2024-01-21] MEDS: ZINC GLUCONATE 50 MG TABLET PO (08:39)
[2024-01-21] MEDS: LOSARTAN POTASSIUM 50 MG TABLET 100 MG PO (08:40)
[2024-01-21] MEDS: INSULIN ASPART 300 UNIT/3 ML PEN SUBQ ×3 (08:40→17:18)
[2024-01-21] MEDS: EZETIMIBE 10 MG TABLET PO (08:40)
[2024-01-21] MEDS: TORSEMIDE 20 MG TABLET PO (08:40)
[2024-01-21] MEDS: CHOLECALCIFEROL (VITAMIN D3) 125 MCG/5000 UNIT TABLET PO (08:40)
[2024-01-21] MEDS: AZATHIOPRINE 50 MG TABLET PO (08:40)
[2024-01-21] MEDS: SERTRALINE HCL 50 MG TABLET PO (08:40)
[2024-01-21] MEDS: 0.9 % SODIUM CHLORIDE 250 ML 10 ML IV (08:42)
--- NOTE | 2024-01-21 10:29 | REH.PTDLY ---
Physical Therapy Daily Note PT Daily Note/Assess Start: 01/19/24 13:50 Freq: Status: Active Protocol: Document 01/21/24 10:20 NAVI (Rec: 01/21/24 10:28 NAVI [id number]) Physical Therapy Daily Note/Assessment Time In 09:45 Time Out 10:00 Pain Level 0 Pain Level 0 Subjective Pt denies pain, she reports she is surprised at the fact that she really hasn't had any with this surgery. Feels tired today and just out of it per pt, didn't sleep well. Pt is up in chair upon arrival, worked with OT this morning already. Therapeutic Exercise Minutes (minutes) 7 Therapeutic Exercise Units 1 Therapeutic Exercise Treatment Instructed in B LE seated exs 10-15x ea to improve strength for ease of transfers. Pt performing LAQ, marching, hip abd and hip add. L foot only with AP. Therapeutic Activity Minutes (minutes) 6 Therapeutic Activity Units 0 Therapeutic Activity Comments Attempted sit to stand transfers with TTWB on R. Cues for pt to scoot bottom forward in chair and use arms/ L LE to push up. With Max A attempted 3x with therapist to stand. Pt unable to fully extend arms from chair and reach for RW without wanting to put weight thru R LE. Pt wants to stay up in chair at this time, but will require 2 assist to get back to bed when she is ready. Total Therapy Minutes 13 Total Physical Therapy Units 1 Daily Note Summary Pt will need SNF stay at [facility] for improved strength to gain independence. She is unable to perform sit to stand transfers from chair while maintaining TTWB on R LE due to weakness. Continues to deny pain post rx.
[2024-01-21 11:11] LABS: Glucometer 282 mg/dL (74-106)
--- NOTE | 2024-01-21 11:20 | CM.NOTE ---
Rounds made with Dr. Benz, pt verbalizes pain control but difficuly sleeping last night. Pt will go to [facility] when medically stable.
--- NOTE | 2024-01-21 12:01 | PC.NURSE ---
Hardware Technician spoke with Randy from [facility] and gave update that patient will be going to SNF at discharge. He states they will plan to discharge patient from their services.
--- NOTE | 2024-01-21 12:52 | P.PN_ITS ---
<Statement entered by Dayo Benz MD - 01/21/24 13:13> Patient seen and examined, agree with assessment and plan below. Doing well after foot surgery and pain controlled. Working with PT/OT. Continue antibiotics. Likely to SNF in next 1-2 days.. Diagnosis: 1. Diabetic foot ulcer 2. Chronic osteomyelitis 3. Oral bobbi 4. DM2 5. HTN 6. DM2 with polyneuropathy 7. Hx DVT 8. Parkonson's 9. Anemia of CKD 10. CKD 3a Progress Note: Subjective Subjective Interval history: 01/21/24 1035 POD#2. Patient is sitting up in a bedside chair at the time of my exam. She is somnolent but arouses to voice and remains A&O x 3. She was given narcotic pain medication early this morning which likely accounts for her somnolence. She is working well with therapy but continues to require significant assistance with ADLs, transfers and ambulation. She has experienced some pain to her operative foot in the last 12 hours, which is well-controlled with her current pain regimen. She currently denies any pain. DISPOSITION: Likely d/c in the next 24-48 hrs pending SNF acceptance for rehab strengthening Exam Constitutional Vital Signs, click to edit/add: Last Vital Signs Temp 98.2 F 01/21/24 11:00 Pulse 77 01/21/24 11:00 Resp 16 01/21/24 03:42 BP 94/58 01/21/24 11:00 Pulse Ox 93 L 01/21/24 11:00 O2 Del Method Room Air 01/21/24 03:42 Common normals: no apparent distress, oriented x3 and alert [facility] Common normals: normocephalic, head/scalp atraumatic and hearing grossly normal bilaterally Head and scalp: normocephalic and atraumatic Eye Common normals: PERRL, EOMs intact bilaterally, conjunctivae normal and no scleral icterus General eye: normal appearance of both eyes Conjunctiva: conjunctiva(e) normal Pupil: PERRL Chest Common normals: inspection of chest normal Chest: symmetrical chest wall rise Respiratory Common normals: normal respiratory effort, no use of accessory muscles and clear to auscultation bilaterally Effort & inspection: able to speak in complete sentences Auscultation: clear to auscultation bilaterally Cardio Common normals: regular rate, regular rhythm, S1 normal heart sound, S2 normal heart sound, no murmurs and peripheral pulses 2+ throughout Rate: regular rate Rhythm: regular rhythm Heart sounds: S1 normal and S2 normal Peripheral pulses: pulses 2+ throughout GI Common normals: Normal to inspection, nondistended, normoactive bowel sounds present, soft to palpation, non-tender and no hepatosplenomegaly Palpation: soft and no hepatosplenomegaly Bladder/kidney exam: bladder normal to palpation Extremity Common normals: normal to inspection and no calf tenderness General: no clubbing, no cyanosis and no edema Right lower extremity: foot and digits (Post op drsg/splint in place. D&I) Right foot and digits: other (chronic paresthesia of the R foot) Neuro Common normals: oriented x3, CN's II-XII intact bilaterally, moves all extremities and no focal motor deficits Sensorium/orientation: awake and alert Sensory exam: sensory level loss detected (Bilat feet 2/2 chronic neuropathy) Psych Common normals: mental status grossly normal Progress Note: Objective Labs Labs: Short CBC 01/21/24 Range/Units 04:21 WBC 7.7 (4.0-11.0) 10^3/uL Hgb 8.5 L (12.0-16.0) g/dL Hct 27.9 L (36.0-48.0) % Plt Count 116 L (150-450) 10^3/uL BMP 01/21/24 04:21 Sodium 136 Potassium 4.6 Chloride 99 Carbon Dioxide 32.0 BUN 48.0 H Creatinine 1.24 H Glucose 262 H Calcium 8.9 Liver Function 01/21/24 Range/Units 04:21 Total Bilirubin 0.3 (0.2-1.0) mg/dL AST 12 L (15-37) U/L ALT 12 L (14-59) U/L Alkaline Phosphatase 90 (46-116) U/L Albumin 2.6 L (3.4-5.0) g/dL Progress Note: A&P Assessment and Plan (1) S/P foot surgery, right: Assessment and Plan: ACUTE * POD#2 - R partial calcanectomy, application of soft tissue bioinformatics software engineer & allogenic skin substitute per Dr Barbosa on 01/19/24 * Defer post op IVF, pain management, ABX, DVT prophylaxis, PT/OT orders, WB instructions to the Podiatry service * Unremarkable post op course to date * Medical management per hospitalist service (2) Oral bobbi: Assessment and Plan: ACUTE * Continue Nystatin S&S QID, continue at d/c (3) Postoperative anemia due to acute blood loss: Assessment and Plan: ACUTE * Hgb 8.5 today * Continues slow trend down * Consider PRBC transfusion for Hgb < 7 or if significantly symptomatic * 2/2 intra op blood loss * Remains Asymptomatic * Concurrent stable mild thrombocytopenia - Podiatry service plans to hold heparin DVT prophylaxis if PLTs drop below 100 * Still no evidence of active bleeding (no hematuria/hematochezia/melena) * Monitor w/ CBC daily (4) Chronic osteomyelitis of right foot: Assessment and Plan: CHRONIC * Definitive operative management noted above (5) Autoimmune hepatitis: Assessment and Plan: CHRONIC * CMP daily to monitor liver fx * remains stable * Pt refuses all tylenol products (6) Depression: Assessment and Plan: CHRONIC * Continue home sertraline (7) Diabetes: Assessment and Plan: CHRONIC * Poorly controlled w/ hyperglycemia * A1C 8.0 * Pt reports previous A1C was 6.0. She c/o of poor diet at the SNF [employer] that has mostly high carb options * Continue home NPH BID * Increase to 55 un BID tonight and monitor response * ACHS glucometer checks * Continue high dose SSI for glucose correction (8) Parkinsons: Assessment and Plan: CHRONIC * Continue home Azathioprine * Pt reports previous prescription for Sinemet per neurology, but this is no longer on her med profile that we received from her previous [facility] * Recommend FU w/ her PCP to review after discharge (9) Hypertension: Assessment and Plan: CHRONIC * Continue home losartan * PRN hydralazine IVP (10) Stage 3a chronic kidney disease (CKD): Assessment and Plan: CHRONIC * Stable at baseline * CMP daily
--- NOTE | 2024-01-21 13:40 | PM.EN ---
Event Note Event Note: 01/21/24 1335 Informed by nursing that the pt remains very somnolent and is falling asleep mid sentence, even after she stood and returned to bed. Her BP is now dropping to 80s/40s and she is hypoxic at 86%. Nursing has applied O2. She will be given an IVF bolus and maintenance IVFs will be resumed. Her home bumex has been held for now. We will give 1 dose of narcan and monitor for improved wakefulness/hypoxia/hypotension. If narcan is effective, we will d/c her oxycodone for postop pain, and prescribe low dose Tramadol instead. The pt refuses to take tylenol d/t her known liver cirrhosis. 1355 Nursing reports narcan administration was effective and the pt is awake, alert, and answering appropriately. Her SBP increased to 106. We will d/c all oxycodone and order low dose Tramadol for pain. Nursing is instructed to hold Tramadol until oversedation from oxycodone is completely resolved. A further PRN dose of Narcan has been ordered should the pt's oversedation recur before the oxycodone has completely cleared. Nursing will continue to monitor her mentation, BP, and oxygen status. Oxygen supplementation should be weaned off as soon as possible.
[2024-01-21] MEDS: 0.9 % SODIUM CHLORIDE 500 ML IV (13:44)
[2024-01-21] MEDS: NALOXONE HCL 0.4 MG/ML VIAL 0.400000000000000022 MG IV ×2 (13:44→17:17)
--- NOTE | 2024-01-21 14:26 | SWNOTE1 ---
VERNON sent updated physician notes, PT/OT, labs, vitals, and med list to [place].
[2024-01-21] MEDS: LACTATED RINGER'S SOLUTION 1,000 ML 50 ML IV (14:56)
[2024-01-21 16:04] LABS: Glucometer 194 mg/dL (74-106)
[2024-01-21 19:36] LABS: Glucometer 190 mg/dL (74-106)
[2024-01-22] MEDS: NYSTATIN 500,000 UNIT/5 ML ORAL.SUSP 500000 UNIT PO ×2 (05:00→15:11)
[2024-01-22 05:12] LABS: Basophils Percent Auto 0.3 % (0.2-2.0); Eosinophils Absolute Auto 0.1 10^3/uL (0.0-0.7); Eosinophils Percent Auto 1.7 % (0.9-7.0); Hematocrit 25.8 % (36.0-48.0); Hemoglobin 7.9 g/dL (12.0-16.0); Immature Granulocytes Abs Auto 0.03 10^3/uL (0.00-0.03); Immature Granulocytes Pct Auto 0.4 % (0.0-0.5); Lymphocytes Percent Auto 25.9 % (20.5-60.0); Mean Corpuscular HGB Conc 30.6 g/dL (29.9-35.2); Mean Corpuscular Hemoglobin 26.7 pg (26.7-34.0); Mean Corpuscular Volume 87.2 fL (81.0-99.0); Mean Platelet Volume 9.5 fL (9.5-13.5); Monocytes Absolute Auto 0.7 10^3/uL (0.3-0.8); Monocytes Percent Auto 9.5 % (1.7-12.0); Neutrophils Absolute Auto 4.7 10^3/uL (1.4-6.5); Neutrophils Percent Auto 62.2 % (43.0-75.0); Platelet Count 103 10^3/uL (150-450); Red Blood Count 2.96 10^6/uL (4.20-5.40); Red Cell Distribution Width 15.2 % (11.0-15.0); White Blood Count 7.6 10^3/uL (4.0-11.0)
[2024-01-22 05:35] VITALS: BP 99/47; PULSE 91; RESP 18; TEMP 37; O2SAT 92
[2024-01-22 05:40] LABS: Alanine Aminotransferase 12 U/L (14-59); Albumin Globulin Ratio 0.7; Albumin Level 2.5 g/dL (3.4-5.0); Alkaline Phosphatase 76 U/L (46-116); Anion Gap 13.3; Aspartate Amino Transferase 14 U/L (15-37); BUN Creatinine Ratio 40.5; Bilirubin Total 0.3 mg/dL (0.2-1.0); Calcium 8.8 mg/dL (8.5-10.1); Carbon Dioxide 29.1 mmol/L (21.0-32.0); Chloride 102 mmol/L (98-107); Estimated GFR (African America 40 (>=60); Estimated GFR (Non-African Ame 33 (>=60); Globulin 3.7 g/dL; Glucose 190 mg/dL (74-106); Potassium 5.4 mmol/L (3.5-5.1); Sodium 139 mmol/L (136-145); Total Protein 6.2 g/dL (6.4-8.2)
[2024-01-22] MEDS: CEFAZOLIN SODIUM/DEXTROSE,ISO 1 GM/50 ML IV.SOLN IV (08:39)
[2024-01-22] MEDS: INSULIN ASPART 300 UNIT/3 ML PEN SUBQ ×3 (08:39→16:24)
[2024-01-22] MEDS: AZATHIOPRINE 50 MG TABLET PO (09:14)
[2024-01-22] MEDS: SENNOSIDES 8.6 MG TABLET 17.1999999999999993 MG PO (09:14)
[2024-01-22] MEDS: PHENAZOPYRIDINE 100 MG TABLET 200 MG PO (09:14)
[2024-01-22] MEDS: GLUCERNA 1.5 CAL 237 ML LIQUID PO (09:14)
[2024-01-22] MEDS: EZETIMIBE 10 MG TABLET PO (09:14)
[2024-01-22] MEDS: SERTRALINE HCL 50 MG TABLET PO (09:14)
[2024-01-22] MEDS: ZINC GLUCONATE 50 MG TABLET PO (09:14)
[2024-01-22] MEDS: CHOLECALCIFEROL (VITAMIN D3) 125 MCG/5000 UNIT TABLET PO (09:14)
--- NOTE | 2024-01-22 09:14 | SWNOTE1 ---
SW had message and pt is approved to go to [facility]. SW to work on dc.
[2024-01-22] MEDS: HEPARIN SODIUM (PORCINE) 5,000 UNIT/ML VIAL 5000 UNIT SUBQ (09:15)
[2024-01-22] MEDS: ASCORBIC ACID 500 MG TABLET 1000 MG PO (09:15)
--- NOTE | 2024-01-22 09:36 | CM.NOTE ---
2nd Notice of Important Message From Medicare discussed with pt, pt denies questions or concerns.
[2024-01-22 09:56] VITALS: O2SAT 95
--- NOTE | 2024-01-22 09:59 | RESP.RT ---
Patient had sp02 of 96 on 1 liter with the nasal cannula half out nares so put her on RA and she had sp02 of 95
--- NOTE | 2024-01-22 10:58 | CT_ITS ---
The [address] [address] Patient Name: GOYO FARLEY MRN: [id number] date: 1950 Sex: F Assigned Patient Location: [place] Current Patient Location: [place] Accession/Order Number: [id number] Exam Date: 01/22/2024 12:45 Report Date: 01/22/2024 13:24 At the request of: MARIANO WADE Procedure: CT head/brain wo con CT head/brain wo con, 01/22/2024 12:45 PM EST INDICATION: Altered mental status COMPARISON: There is no appropriate prior study for comparison. TECHNIQUE: Axial CT images of the brain from skull base to vertex, including portions of the face and sinuses, were obtained without contrast . Multiplanar reformatted images were generated and reviewed as needed. Dose reduction techniques were achieved by using automated exposure control and/or adjustment of mA and/or kV according to patient size and/or use of iterative reconstruction technique. FINDINGS: The cerebral sulci as well as ventricular system are appropriate for age. There is no intracranial mass, mass effect, midline shift, intra or extra-axial fluid collection or hemorrhage. Periventricular and centrum semiovale hypodensities are most likely consistent with microvascular ischemic changes. Nonspecific calcification within the basal ganglia is noted. There is mucosal thickening within the sphenoid and maxillary sinuses. The visualized portions of orbits, mastoid air cells as well as remainder of paranasal sinuses are unremarkable. There is no suspicious osteolytic or osteoblastic lesion. CT/CT head/brain wo con IMPRESSION: No acute intracranial process is noted. Electronically authenticated by: JULIA MCGREGOR Date: 01/22/2024 13:24
--- NOTE | 2024-01-22 10:58 | CT_ITS ---
[address] [address] Patient Name: GOYO FARLEY MRN: [id number] date: 1950 Sex: F Assigned Patient Location: [place] Current Patient Location: [place] Accession/Order Number: [id number] Exam Date: 01/22/2024 12:45 Report Date: 01/22/2024 13:40 At the request of: MARIANO WADE Procedure: CT angio chest EXAMINATION: CT angio chest HISTORY: SOB, hypoxia , altered mental status COMPARISON: No relevant comparison available. TECHNIQUE: Multi-planar CT images were created with IV contrast. Axial, Coronal, and Sagittal images. Dose reduction techniques were achieved by using automated exposure control and/or adjustment of mA and/or kV according to patient size and/or use of iterative reconstruction technique. 3-D reconstruction was performed on a separate workstation. FINDINGS: VASCULATURE: No pulmonary embolism or abnormal opacity. LUNGS: Scattered small infiltrates versus nodular opacities. Trace amount atelectasis or infiltrates within posterior left costophrenic angle. PLEURA: Trace amount left pleural fluid. BAY: No mass or adenopathy. MEDIASTINUM: No mass or adenopathy. CARDIAC: No enlargement, pericardial effusion, or pericardial thickening. AORTA: No aneurysm or dissection. CHEST WALL: No mass or axillary adenopathy. BONES: No bone lesion or fracture. LIMITED ABDOMEN: No suspicious findings. Limited images of the upper abdomen. OTHER: Negative. CT/CT angio chest IMPRESSION: 1. No pulmonary embolism. 2. Trace amount of bilateral infiltrates. Subtle areas could represent small nodules. Consider follow-up CT chest in 1-2 months to document complete clearing. Electronically authenticated by: HIEU GARNER Date: 01/22/2024 13:40
[2024-01-22 11:14] LABS: Glucometer 339 mg/dL (74-106)
--- NOTE | 2024-01-22 11:39 | CM.NOTE ---
Rounds made with Dr. Benz, pt hypoxic this AM. Pt now on oxygen, will get CTA today to evaluate lungs. Possible discharge this afternoon to [facility] depending on results from CTA.
[2024-01-22 11:53] VITALS: BP 117/66
[2024-01-22] MEDS: LOSARTAN POTASSIUM 50 MG TABLET 100 MG PO (11:53)
[2024-01-22 14:00] VITALS: BP 131/70; PULSE 87; RESP 20; TEMP 37.2; O2SAT 95
--- NOTE | 2024-01-22 14:12 | PT.DAILY ---
Physical Therapy Daily Note PT Daily Note/Assess Start: 01/19/24 13:50 Freq: Status: Active Protocol: Document 01/22/24 13:30 [id number] (Rec: 01/22/24 14:12 [id number] [id number]) Physical Therapy Daily Note/Assessment Time In/Time Out Time In 13:30 Time Out 14:02 Subjective Subjective Patient reports has had a rough morning, Just got back from CT scan and not feeling up to anything but does agree to PT. Denies pain. Therapeutic Exercise Time Therapeutic Exercise Minutes (minutes) 10 Therapeutic Exercise Units 1 Therapeutic Exercise Treatment Therapeutic Exercise Treatment Supine exercises with AROM and isometrics as tolerated. Patient does have cast on R foot. 10 reps each. Seated LAQ 10x Therapeutic Activity Time Therapeutic Activity Minutes (minutes) 15 Therapeutic Activity Units 1 Therapeutic Activity Treatment Therapeutic Activity Comments Supine to sit with min assist with heavy verbal cues for patient to motor plan task. EOB sitting x 5 min unsupported with supervision. Attempted sit to stand x1 but unable with max assist x1. Sit to supine mod assist at B LE and verbal cues for correct technique. Rolling side to side supervision. Total Physical Therapy Time Total Therapy Minutes 25 Total Physical Therapy Units 2 Summary Daily Note Summary Patient requires verbal cues for motor planning with supine to sit today. Requiring min assist from therapist. Patient does work hard with exercise program showing improved strength in B LE. Attempted to sit to stand from EOB but unable with 1 assist while maintaining NWB of R heel. Patient shows moderate fatigue post RX. Recommend SNF at [place]
--- NOTE | 2024-01-22 14:19 | SWNOTE1 ---
Pt is ready for dc to [facility]. Dc orders are in. SW sent dc med rec to [facility]. VERNON spoke with nursing and recommended going by [facility].
--- NOTE | 2024-01-22 14:58 | SWNOTE1 ---
SW set up [facility] for 5:00pm. SW notified nursing, [facility], and pt of time. SW completed HENS. SW gave nursing the CRF and took packet out to the floor.
[2024-01-22] MEDS: PRAMIPEXOLE 0.125 MG TABLET PO (15:11)
[2024-01-22 15:57] LABS: Glucometer 255 mg/dL (74-106)
--- NOTE | 2024-01-22 18:46 | P.DS_ITS ---
DS: Providers Provider Date of admission: 01/19/24 12:47 Primary care physician: KRIS CHANG Consults: 01/19/24 07:57 Physical Therapy Eval and Treat Routine Reason for consultation: Gait training, TTWB Has provider been notified: No 01/19/24 08:19 Consult to Rn Renal Routine Reason for consult:: Long-Term Other reason:: Patient resides in assited living but will require daily wound care 01/19/24 16:13 Occupational Therapy Eval and Treat Routine Reason for consultation: Post R partial calcanectomy Has provider been notified: No DS: Diagnosis Discharge Diagnosis (1) Diabetic foot ulcer associated with type 2 diabetes mellitus: (2) Chronic osteomyelitis of right foot: (3) Oral bobbi: (4) Postoperative anemia due to acute blood loss: (5) Type 2 diabetes mellitus with hyperglycemia: (6) Hypertension: (7) Type 2 diabetes mellitus with diabetic polyneuropathy: (8) History of DVT (deep vein thrombosis): (9) Parkinsons: (10) Anemia in chronic kidney disease: (11) Stage 3a chronic kidney disease (CKD): DS: Summary Hospital Course Hospital Course: Reason for admission: See op note and H&P for details. 73 y/o female admitted after foot surgery. History of diabetic foot ulcer and chronic osteomyelitis. Nonhealing ulcer for over a year and failed conservative treatment. MRI with osteomyelitis and podiatry recommended debridement and removal of bone. To OR for partial calcectomy and bone biopsy. Admitted after surgery. Hospital course: Resumed home medication. Started PT/OT and patient had difficulty with transfers. Continued ancef postoperatively. Did well in hospital. Working with PT and recommended SNF. Bone cultures pending. Pain well controlled. Patient had episode concerning for opiate overdose and given narcan with improvement. Noted hypoxia and altered mental status. Placed on nasal canula. Gradually improved. CT head negative. Review of medication list shows patient has been off amantadine and mirapex for weeks. Patient reports not able to get in [place] and declining since. CTA with atelectasis but no infiltrate. Discharged to SNF in stable condition. WIll take oral doxycycline for infection. Use ultram PRN for pain. Resume medication as directed including amantadine and mirapex. Time Spent with Patient Time attestation: Total time spent providing and/or coordinating discharge services: Exam Constitutional Vital Signs, click to edit/add: Last Vital Signs Temp 98.9 F 01/22/24 14:00 Pulse 87 01/22/24 14:00 Resp 20 01/22/24 14:00 BP 131/70 01/22/24 14:00 Pulse Ox 95 01/22/24 14:00 O2 Del Method Nasal Cannula 01/22/24 14:00 O2 Flow Rate 3 01/22/24 14:00 Documenting provider has reviewed patient's vital signs: yes Common normals: no apparent distress, oriented x3 and alert HENMT Common normals: normocephalic Eye Common normals: PERRL and EOMs intact bilaterally Respiratory Common normals: normal respiratory effort and clear to auscultation bilaterally Cardio Common normals: regular rate, regular rhythm, no gallops, no murmurs and no rub GI Common normals: Normal to inspection, nondistended, normoactive bowel sounds present and non-tender Extremity Common normals: no pedal edema DS: Data Data Completed and Pending Labs on day of discharge: Labs from last 24 hours 01/22/24 01/22/24 01/22/24 15:56 11:13 04:21 WBC 7.6 RBC 2.96 L Hgb 7.9 L Hct 25.8 L MCV 87.2 MCH 26.7 MCHC 30.6 RDW 15.2 H Plt Count 103 L MPV 9.5 Neut % (Auto) 62.2 Lymph % (Auto) 25.9 [place] % (Auto) 9.5 Eos % (Auto) 1.7 Baso % (Auto) 0.3 Neut # (Auto) 4.7 Lymph # (Auto) 2.0 [place] # (Auto) 0.7 Eos # (Auto) 0.1 Baso # (Auto) 0.0 Abs Immat Gran (auto) 0.03 Imm/Tot Granulo (auto) 0.4 Sodium 139 Potassium 5.4 H Chloride 102 Carbon Dioxide 29.1 Anion Gap 13.3 BUN 62.0 H Creatinine 1.53 H Est GFR ( Amer) 40 L Est GFR (Non-Af Amer) 33 L BUN/Creatinine Ratio 40.5 Glucose 190 H Calcium 8.8 Total Bilirubin 0.3 AST 14 L ALT 12 L Alkaline Phosphatase 76 Total Protein 6.2 L Albumin 2.5 L Globulin 3.7 Albumin/Globulin Ratio 0.7 POC Glucose 255 H 339 H 01/21/24 19:26 WBC RBC Hgb Hct MCV MCH MCHC RDW Plt Count MPV Neut % (Auto) Lymph % (Auto) [place] % (Auto) Eos % (Auto) Baso % (Auto) Neut # (Auto) Lymph # (Auto) [place] # (Auto) Eos # (Auto) Baso # (Auto) Abs Immat Gran (auto) Imm/Tot Granulo (auto) Sodium Potassium Chloride Carbon Dioxide Anion Gap BUN Creatinine Est GFR ( Amer) Est GFR (Non-Af Amer) BUN/Creatinine Ratio Glucose Calcium Total Bilirubin AST ALT Alkaline Phosphatase Total Protein Albumin Globulin Albumin/Globulin Ratio POC Glucose 190 H Preliminary micro results at discharge 01/19/24 09:18 Tissue Culture - Preliminary Bone 01/19/24 09:18 - Preliminary Bone 01/19/24 09:18 - Preliminary Bone Discharge Plan Discharge Disposition: Xfer SNF Discharge Medications: New amantadine HCl 100 mg Capsule 100 mg PO QHS Qty: 1 0RF nystatin 100,000 unit/mL Suspension 500,000 unit PO QID Qty: 1 0RF tramadol 50 mg Tablet 50 mg PO Q6H PRN (Reason: Pain) 5 Days Qty: 20 0RF pramipexole 0.125 mg Tablet 0.125 mg PO TID Qty: 1 0RF doxycycline hyclate 100 mg tablet 100 mg PO BID 14 Days Qty: 28 0RF Continued azathioprine 50 mg tablet 50 mg PO DAILY bisacodyl [Dulcolax (bisacodyl)] 5 mg tablet,delayed release (DR/EC) 5 mg PO DAILY PRN (Reason: constipation) torsemide 20 mg tablet 20 mg PO DAILY ezetimibe 10 mg tablet 10 mg PO DAILY Humulin N NPH U-100 Insulin 100 unit/mL suspension 50 unit SUBCUT BID loperamide 2 mg capsule 2 mg PO Q4H PRN (Reason: loose stool) melatonin 10 mg capsule 10 mg PO DAILY magnesium hydroxide [Milk of Magnesia] 400 mg/5 mL suspension 30 ml PO DAILY PRN (Reason: constipation) polyethylene glycol 3350 [Miralax] 17 gram powder in packet 17 g PO DAILY PRN (Reason: constipation) ondansetron HCl 4 mg tablet 4 mg PO Q8H PRN (Reason: nausea and vomiting) sertraline 50 mg tablet 50 mg PO Q24H insulin lispro [Humalog KwikPen Insulin] 100 unit/mL insulin pen 1 sliding scale dose subcut USEASDIRECTD sennosides [Evac-U-Gen (sennosides)] 8.6 mg tablet 17.2 mg PO DAILY losartan [Cozaar] 100 mg tablet 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 Forms: Portal Instructions Discharge Date/Time: 01/22/24 17:27
== END 2024-01-22 17:27 ==
LOC: SURGOUT 01-20 08:00 → MS 01-22 12:00
PROVIDERS: Anesthesiology; Nurse Practitioner; Podiatrist Foot & Ankle Surgery; Admitting Provider Family Medicine; PCP Internal Medicine; Visit Provider Family Medicine
PROC: (CPT 11960; principal; 2024-01-19 07:30)
DX: E11.621 Type 2 diabetes mellitus with foot ulcer (principal); L97.412 Non-pressure chronic ulcer of right heel and midfoot with fat layer exposed; M67.873 Other specified disorders of tendon, right ankle and foot; E11.69 Type 2 diabetes mellitus with other specified complication; M86.671 Other chronic osteomyelitis, right ankle and foot; E11.65 Type 2 diabetes mellitus with hyperglycemia; D62 Acute posthemorrhagic anemia; R41.82 Altered mental status, unspecified; R09.02 Hypoxemia; D69.6 Thrombocytopenia, unspecified; E11.42 Type 2 diabetes mellitus with diabetic polyneuropathy; B37.0 Candidal stomatitis; K75.4 Autoimmune hepatitis; I12.9 Hypertensive chronic kidney disease with stage 1 through stage 4 chronic kidney disease, or unspecified chronic kidney disease; E11.22 Type 2 diabetes mellitus with diabetic chronic kidney disease; N18.31 Chronic kidney disease, stage 3a; G20.A1 Parkinson's disease without dyskinesia, without mention of fluctuations; D63.1 Anemia in chronic kidney disease; F32.A Depression, unspecified; Z89.411 Acquired absence of right great toe; Z89.421 Acquired absence of other right toe(s); Z86.16 Personal history of COVID-19; Z79.4 Long term (current) use of insulin; Z79.899 Other long term (current) drug therapy; Z86.718 Personal history of other venous thrombosis and embolism; Z87.891 Personal history of nicotine dependence
CPT/HCPCS: 11960; 15275; 28120; 36415; 70450; 71275; 73630; 80053; 82948; 83036; 85025; 87070; 87102; 87116; 87205; 87206; 88304; 88311; 94761; 96361; 96365; 96366; 96372; 96375; 96376; 97110; 97161; 97165; 97530; 97535; 99999; G0378; J1094; J1815; J2704; Q9966

== ENCOUNTER 2024-01-30 10:23 | Outpatient (OUT) | payer MEDICARE, SELFPAY | END 2024-01-30 10:24 | disposition home or self-care (01) | LOC: WC 10:23 | PROVIDERS: PCP Internal Medicine; Visit Provider Podiatrist Foot & Ankle Surgery | DX: E11.621 Type 2 diabetes mellitus with foot ulcer (principal); L97.412 Non-pressure chronic ulcer of right heel and midfoot with fat layer exposed | CPT/HCPCS: 29515 ==

== ENCOUNTER 2024-02-06 11:38 | Outpatient (OUT) | payer MEDICARE, SELFPAY | END 2024-02-06 11:39 | disposition home or self-care (01) | LOC: WC 11:38 | PROVIDERS: PCP Internal Medicine; Visit Provider Podiatrist Foot & Ankle Surgery | DX: E11.621 Type 2 diabetes mellitus with foot ulcer (principal); L97.412 Non-pressure chronic ulcer of right heel and midfoot with fat layer exposed | CPT/HCPCS: G0463 ==

== ENCOUNTER 2024-02-13 11:20 | Outpatient (OUT) | payer MEDICARE, SELFPAY | END 2024-02-13 11:21 | disposition home or self-care (01) | LOC: WC 11:20 | PROVIDERS: PCP Internal Medicine; Visit Provider Podiatrist Foot & Ankle Surgery | DX: E11.621 Type 2 diabetes mellitus with foot ulcer (principal); L97.412 Non-pressure chronic ulcer of right heel and midfoot with fat layer exposed | CPT/HCPCS: 11042 ==

== ENCOUNTER 2024-02-27 11:35 | Outpatient (OUT) | payer MEDICARE, SELFPAY | END 2024-02-27 11:36 | disposition home or self-care (01) | LOC: WC 11:35 | PROVIDERS: PCP Internal Medicine; Visit Provider Podiatrist Foot & Ankle Surgery | DX: E11.621 Type 2 diabetes mellitus with foot ulcer (principal); L97.412 Non-pressure chronic ulcer of right heel and midfoot with fat layer exposed | CPT/HCPCS: 11042 ==

== ENCOUNTER 2024-03-16 14:04 | Outpatient (OUT) | payer MEDICARE, SELFPAY | END 2024-03-16 14:05 | disposition home or self-care (01) | LOC: WC 14:04 | PROVIDERS: PCP Internal Medicine; Visit Provider Podiatrist Foot & Ankle Surgery | DX: E11.621 Type 2 diabetes mellitus with foot ulcer (principal); L97.412 Non-pressure chronic ulcer of right heel and midfoot with fat layer exposed | CPT/HCPCS: 11042 ==

== ENCOUNTER 2024-04-06 15:54 | Outpatient (OUT) | payer MEDICARE, SELFPAY | END 2024-04-06 15:55 | disposition home or self-care (01) | LOC: WC 15:55 | PROVIDERS: PCP Internal Medicine; Visit Provider Podiatrist Foot & Ankle Surgery | DX: E11.621 Type 2 diabetes mellitus with foot ulcer (principal); L97.412 Non-pressure chronic ulcer of right heel and midfoot with fat layer exposed | CPT/HCPCS: 11042 ==

== ENCOUNTER 2024-04-30 11:04 | Outpatient (OUT) | payer MEDICARE, SELFPAY | END 2024-04-30 11:05 | disposition home or self-care (01) | LOC: WC 11:04 | PROVIDERS: PCP Internal Medicine; Visit Provider Podiatrist Foot & Ankle Surgery | DX: E11.621 Type 2 diabetes mellitus with foot ulcer (principal); L97.412 Non-pressure chronic ulcer of right heel and midfoot with fat layer exposed | CPT/HCPCS: 11042 ==

== ENCOUNTER 2024-05-21 11:32 | Outpatient (OUT) | payer MEDICARE, SELFPAY | END 2024-05-21 11:33 | disposition home or self-care (01) | LOC: WC 11:32 | PROVIDERS: PCP Internal Medicine; Visit Provider Podiatrist Foot & Ankle Surgery | DX: E11.621 Type 2 diabetes mellitus with foot ulcer (principal); L97.412 Non-pressure chronic ulcer of right heel and midfoot with fat layer exposed | CPT/HCPCS: G0463 ==

== ENCOUNTER 2024-06-18 10:53 | Outpatient (OUT) | payer MEDICARE, SELFPAY | END 2024-06-18 10:54 | disposition home or self-care (01) | LOC: WC 10:54 | PROVIDERS: PCP Internal Medicine; Visit Provider Podiatrist Foot & Ankle Surgery | DX: E11.621 Type 2 diabetes mellitus with foot ulcer (principal); L97.412 Non-pressure chronic ulcer of right heel and midfoot with fat layer exposed | CPT/HCPCS: G0463 ==

== ENCOUNTER 2024-06-18 12:33 | Outpatient (OUT) | payer MEDICARE, SELFPAY ==
--- NOTE | 2024-06-18 12:43 | US_ITS ---
[facility] [place] [address] Patient Name: GOYO FARLEY MRN: [id number] date: 1950 Sex: F Assigned Patient Location: [facility] Current Patient Location: ED.MAIN Accession/Order Number: [id number] Exam Date: 06/18/2024 12:59 Report Date: 06/18/2024 14:42 At the request of: ILDA BARBOSA Procedure: US venous doppler LE RT EXAMINATION: US venous doppler LE RT HISTORY: Right Calf Swelling, Tenderness COMPARISON: No relevant comparison available. FINDINGS: REGION: Right lower extremity THROMBI: Thrombi within mid and distal femoral vein and segments of posterior tibial vein. COMPRESSIBILITY: Noncompressible segments. FLOW: Absent/minimal flow within the above segments. OTHER: None. US/US venous doppler LE RT IMPRESSION: 1. Deep vein thrombus within the right femoral vein and posterior tibial vein. 2. Slightly limited evaluation due to patient body habitus and subcutaneous edema. Findings are being called to the office of Dr. Barbosa at this time. Electronically authenticated by: HIEU GARNER Date: 06/18/2024 14:42
== END 2024-06-18 12:34 | disposition home or self-care (01) ==
PROVIDERS: PCP Internal Medicine; Visit Provider Podiatrist Foot & Ankle Surgery
DX: M79.89 Other specified soft tissue disorders (principal); M79.661 Pain in right lower leg; I82.441 Acute embolism and thrombosis of right tibial vein; I82.411 Acute embolism and thrombosis of right femoral vein
CPT/HCPCS: 93971

== ENCOUNTER 2024-06-18 14:36 | Emergency (ER) | payer MEDICARE, SELFPAY ==
[2024-06-18 14:42] VITALS: BP 163/83; PULSE 75; TEMP 36.7; O2SAT 97; BMI 32.6
--- NOTE | 2024-06-18 15:37 | ED.GENADUL1 ---
HPI HPI - General Adult General Chief complaint: Extremity Problem, Nontraumatic Stated complaint: LEFT LOWER EXTREMITY PAIN Time Seen by Provider: 06/18/24 14:47 Source: patient Mode of arrival: walk-in Limitations: no limitations History of Present Illness HPI narrative: 73yo female was sent to the ER due to right calf pain. Pt has no CP, SOB, or any other complaints. Pt has history of DVT in the past, pt was on eliquis for 3 months in the past. Pt has positive DVT to right leg. pt has no travel. pt had right foot surgery 3 months ago approx with Dr Barbosa VIEW OF SYSTEMS: Unless otherwise stated in this report the patient's positive and negative responses for review of systems for constitutional, eyes, ENT, cardiovascular, respiratory, gastrointestinal, neurological, , musculoskeletal, and integument systems and related systems to the presenting problem are either stated in the history of present illness or were not pertinent or were negative for the symptoms and/or complaints related to the presenting medical problem vital signs reviewed and patient is not hypoxic. ? General: The patient appears well and in no apparent distress. Patient is resting comfortably on cart. Not toxic, lethargic, or listless. pt smells of urine, pt was changed and cleaned by nursing staff. Skin: Warm, dry, no pallor noted. There is no rash noted. Head: Normocephalic, atraumatic Eye: Normal conjunctiva, no drainage, EOMI. PERRL. Ears, Nose, Mouth, and Throat: oral mucosa is moist. Nares patent. Mouth without vesicles. Cardiovascular: Regular Rate and Rhythm, no murmurs, gallops, or rubs Respiratory: Patient is in no distress, no accessory muscle use, lungs are clear to auscultation, no wheezing, rales or rhonchi Back: non-tender, no CVA tenderness bilaterally to percussion. NO CTLS midline or paracervical tenderness to palpation. GI: Soft, no tenderness to palpation, no masses appreciated. No rebound, guarding, or rigidity noted. Musculoskeletal: The patient has full range of motion of all extremities and joints with no difficulty. Pt has swelling to the right calf, no pain to the posterior aspect of the entire right leg. no reddness, cellulitis, or any other complication, Patient has no motor, no sensory deficits. Neurological: A&O x4, normal speech, no focal neurological deficits. Psychiatric: Cooperative Musculoskeletal: The patient has full range of motion of all extremities and joints with no difficulty. Patient has no motor, no sensory deficits. Neurological: A&O x4, normal speech, no focal neurological deficits. Psychiatric: Cooperative Related Data Home Medications ?Medication ?Instructions ?Recorded ?Confirmed azathioprine 50 mg tablet 50 mg PO DAILY 12/02/23 01/19/24 bisacodyl 5 mg tablet,delayed 5 mg PO DAILY PRN constipation 12/02/23 01/19/24 release (Dulcolax (bisacodyl)) ezetimibe 10 mg tablet 10 mg PO DAILY 12/02/23 01/19/24 insulin NPH isoph U-100 human 100 50 unit subcut BID 12/02/23 01/19/24 unit/mL subcutaneous suspension (Humulin N NPH U-100 Insulin (isophane susp)) loperamide 2 mg capsule 2 mg PO Q4H PRN loose stool 12/02/23 01/19/24 magnesium hydroxide 400 mg/5 mL 30 ml PO DAILY PRN constipation 12/02/23 01/19/24 oral suspension (Milk of Magnesia) melatonin 10 mg capsule 10 mg PO DAILY 12/02/23 01/19/24 ondansetron HCl 4 mg tablet 4 mg PO Q8H PRN nausea and vomiting 12/02/23 01/19/24 polyethylene glycol 3350 17 gram 17 g PO DAILY PRN constipation 12/02/23 01/19/24 oral powder packet (Miralax) sertraline 50 mg tablet 50 mg PO Q24H 12/02/23 01/19/24 torsemide 20 mg tablet 20 mg PO DAILY 12/02/23 01/19/24 insulin lispro 100 unit/mL 1 sliding scale dose subcut 01/07/24 01/19/24 subcutaneous pen (Humalog KwikPen USEASDIRECTD (U-100) Insulin) losartan 100 mg tablet (Cozaar) 100 mg PO DAILY 01/07/24 01/19/24 sennosides 8.6 mg tablet 17.2 mg PO DAILY 01/07/24 01/19/24 (Evac-U-Gen (sennosides)) Previous Rx's ?Medication ?Instructions ?Recorded amantadine HCl 100 mg capsule 100 mg PO QHS #1 cap 01/22/24 doxycycline hyclate 100 mg tablet 100 mg PO BID 14 days #28 tabs 01/22/24 nystatin 100,000 unit/mL oral 500,000 unit (5 mL) PO QID #1 mL 01/22/24 suspension pramipexole 0.125 mg tablet 0.125 mg PO TID #1 tab 01/22/24 tramadol 50 mg tablet 50 mg PO Q6H PRN Pain 5 days #20 01/22/24 tabs Allergies Allergy/AdvReac Type Severity Reaction Status Date / Time nickel Allergy Severe irritation Verified 12/02/23 13:16 Opioid HPI Opioid Management Most Recent Opioid Data: Last Pain Scale 4 01/21/24 13:16 Last Pain Intensity 0 01/21/24 10:20 PFSH PFSH Medical History (Updated 06/18/24 @ 15:28 by Jian Toscano MD) Anemia in chronic kidney disease ?N18.9 - Chronic kidney disease, unspecified (ICD-10) ?D63.1 - Anemia in chronic kidney disease (ICD-10) Stage 3a chronic kidney disease (CKD) ?N18.31 - Chronic kidney disease, stage 3a (ICD-10) Diabetic foot ulcer associated with type 2 diabetes mellitus ?E11.621 - Type 2 diabetes mellitus with foot ulcer (ICD-10) ?L97.509 - Non-pressure chronic ulcer of other part of unspecified foot with unspecified severity (ICD-10) Chronic osteomyelitis of right foot ?M86.671 - Other chronic osteomyelitis, right ankle and foot (ICD-10) Type 2 diabetes mellitus with diabetic polyneuropathy ?E11.42 - Type 2 diabetes mellitus with diabetic polyneuropathy (ICD-10) Type 2 diabetes mellitus with hyperglycemia ?E11.65 - Type 2 diabetes mellitus with hyperglycemia (ICD-10) History of DVT (deep vein thrombosis) ?Z86.718 - Personal history of other venous thrombosis and embolism (ICD-10) Parkinsons ?G20.A1 - Parkinson's disease without dyskinesia, without mention of fluctuations (ICD-10) Hypertension ?I10 - Essential (primary) hypertension (ICD-10) COVID-19 (12/11/23) ?U07.1 - COVID-19 (ICD-10) Muscle weakness ?M62.81 - Muscle weakness (generalized) (ICD-10) Overactive bladder ?N32.81 - Overactive bladder (ICD-10) Incontinence ?R32 - Unspecified urinary incontinence (ICD-10) Arthritis ?M19.90 - Unspecified osteoarthritis, unspecified site (ICD-10) Retinopathy ?H35.00 - Unspecified background retinopathy (ICD-10) Insomnia ?G47.00 - Insomnia, unspecified (ICD-10) Peripheral edema ?R60.0 - Localized edema (ICD-10) Vitamin D deficiency ?E55.9 - Vitamin D deficiency, unspecified (ICD-10) Neuropathy ?G62.9 - Polyneuropathy, unspecified (ICD-10) L4 vertebral fracture ?S32.049A - Unspecified fracture of fourth lumbar vertebra, initial encounter for closed fracture (ICD-10) Ankle fracture ?S82.899A - Other fracture of unspecified lower leg, initial encounter for closed fracture (ICD-10) Femur fracture, right ?S72.91XA - Unspecified fracture of right femur, initial encounter for closed fracture (ICD-10) Humeral fracture ?S42.309A - Unspecified fracture of shaft of humerus, unspecified arm, initial encounter for closed fracture (ICD-10) Autoimmune hepatitis ?K75.4 - Autoimmune hepatitis (ICD-10) Depression ?F32.A - Depression, unspecified (ICD-10) Osteomyelitis ?M86.9 - Osteomyelitis, unspecified (ICD-10) Foot ulcer ?L97.509 - Non-pressure chronic ulcer of other part of unspecified foot with unspecified severity (ICD-10) Osteoporosis ?M81.0 - Age-related osteoporosis without current pathological fracture (ICD-10) Osteoarthritis ?M19.90 - Unspecified osteoarthritis, unspecified site (ICD-10) Liver disease ?K76.9 - Liver disease, unspecified (ICD-10) Hyperlipidemia ?E78.5 - Hyperlipidemia, unspecified (ICD-10) DVT (deep venous thrombosis) ?I82.409 - Acute embolism and thrombosis of unspecified deep veins of unspecified lower extremity (ICD-10) Diabetes ?E11.9 - Type 2 diabetes mellitus without complications (ICD-10) Surgical History (Updated 01/22/24 @ 09:32 by Dayo Benz MD) S/P foot surgery, right ?Z98.890 - Other specified postprocedural states (ICD-10) History of tonsillectomy ?Z90.89 - Acquired absence of other organs (ICD-10) History of hip replacement ?Z96.649 - Presence of unspecified artificial hip joint (ICD-10) History of complete ray amputation of second toe of right foot ?Z89.421 - Acquired absence of other right toe(s) (ICD-10) Amputation of right great toe ?S98.111A - Complete traumatic amputation of right great toe, initial encounter (ICD-10) Family History (Updated 12/02/23 @ 13:14 by Tiana Guzmán, RN) Other Family history of CHF (congestive heart failure) Family history of COPD (chronic obstructive pulmonary disease) Family history of cancer Family history of hypertension Social History (Updated 12/02/23 @ 13:15 by Tiana Guzmán, RN) Within the past year, how often did you have a drink containing alcohol: monthly or less Smoking status: Former smoker Second hand tobacco smoke exposure: No Non-prescribed substance use: denies use 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 Highest level of school completed/degree received: some college, no degree Exam Constitutional Vital Signs, click to edit/add: Last Vital Signs Temp 98.0 F 06/18/24 14:42 Pulse 68 06/18/24 15:51 Resp 18 06/18/24 15:51 BP 126/88 06/18/24 15:51 Pulse Ox 98 06/18/24 15:51 Course Vital Signs Vital signs: Vital Signs Temperature 98.0 F 06/18/24 14:42 Pulse Rate 75 06/18/24 14:42 Respiratory Rate 18 06/18/24 14:42 Blood Pressure 163/83 H 06/18/24 14:42 Pulse Oximetry 97 06/18/24 14:42 Temperature 98.0 F 06/18/24 14:42 Pulse Rate 68 06/18/24 15:51 Respiratory Rate 18 06/18/24 15:51 Blood Pressure 126/88 06/18/24 15:51 Pulse Oximetry 98 06/18/24 15:51 Medical Decision Making MDM Narrative Medical decision making narrative: Pt was sent to the ER for evaluation and treatment of outpt + DVT to right calf. I spoke to Dr Chang, he recommended starting pt on Eliquis. Pt was given a dose of Eliquis 10mg in the ER. Rx was written for 21 days generic starter pack pt will follow up with Dr Chang for futher meds as needed IMPRESSION: 1. Deep vein thrombus within the right femoral vein and posterior tibial vein. 2. Slightly limited evaluation due to patient body habitus and subcutaneous edema. Findings are being called to the office of Dr. Barbosa at this time. Discharge Plan Discharge Stand Alone Forms: Portal Instructions Chief Complaint: Extremity Problem, Nontraumatic Clinical Impression: Deep vein thrombosis of lower extremity Patient Disposition: Home, Self-Care Time of Disposition Decision: 15:30 Condition: Fair Prescriptions / Home Meds: No Action azathioprine 50 mg tablet 50 mg PO DAILY bisacodyl [Dulcolax (bisacodyl)] 5 mg tablet,delayed release (DR/EC) 5 mg PO DAILY PRN (Reason: constipation) torsemide 20 mg tablet 20 mg PO DAILY ezetimibe 10 mg tablet 10 mg PO DAILY Humulin N NPH U-100 Insulin 100 unit/mL suspension 50 unit SUBCUT BID loperamide 2 mg capsule 2 mg PO Q4H PRN (Reason: loose stool) melatonin 10 mg capsule 10 mg PO DAILY magnesium hydroxide [Milk of Magnesia] 400 mg/5 mL suspension 30 ml PO DAILY PRN (Reason: constipation) polyethylene glycol 3350 [Miralax] 17 gram powder in packet 17 g PO DAILY PRN (Reason: constipation) ondansetron HCl 4 mg tablet 4 mg PO Q8H PRN (Reason: nausea and vomiting) sertraline 50 mg tablet 50 mg PO Q24H insulin lispro [Humalog KwikPen Insulin] 100 unit/mL insulin pen 1 sliding scale dose subcut USEASDIRECTD sennosides [Evac-U-Gen (sennosides)] 8.6 mg tablet 17.2 mg PO DAILY losartan [Cozaar] 100 mg tablet 100 mg PO DAILY amantadine HCl 100 mg Capsule 100 mg PO QHS Qty: 1 0RF nystatin 100,000 unit/mL Suspension 500,000 unit PO QID Qty: 1 0RF tramadol 50 mg Tablet 50 mg PO Q6H PRN (Reason: Pain) 5 Days Qty: 20 0RF pramipexole 0.125 mg Tablet 0.125 mg PO TID Qty: 1 0RF doxycycline hyclate 100 mg tablet 100 mg PO BID 14 Days Qty: 28 0RF Print Language: Georgian Instructions: Deep Vein Thrombosis (ED) Additional Instructions: I have spoke to Dr Barbosa and Dr Chang. Pt was given a dose of Eliquis 10mg in the ER. Pt was only given 21 days, pt will need PCP to refill the medicine after 3 weeks Referrals: KRIS CHANG [Primary Care Provider] - 1 week
[2024-06-18] MEDS: APIXABAN 5 MG TABLET 10 MG PO (15:47)
[2024-06-18 15:51] VITALS: BP 126/88; PULSE 68; O2SAT 98
== END 2024-06-18 16:39 | disposition home or self-care (01) ==
PROVIDERS: Emergency Provider Emergency Medicine; PCP Internal Medicine
DX: I82.411 Acute embolism and thrombosis of right femoral vein (principal); I82.441 Acute embolism and thrombosis of right tibial vein; M79.89 Other specified soft tissue disorders; M79.661 Pain in right lower leg; Z87.891 Personal history of nicotine dependence; E11.621 Type 2 diabetes mellitus with foot ulcer; L97.412 Non-pressure chronic ulcer of right heel and midfoot with fat layer exposed
CPT/HCPCS: 93971; 99283; G0463

== ENCOUNTER 2024-07-12 09:00 | Outpatient (OUT) | payer MEDICARE, SELFPAY | END 2024-07-12 09:01 | disposition home or self-care (01) | LOC: WC 07-13 10:18 | PROVIDERS: PCP Internal Medicine; Visit Provider Physician Assistant | DX: E11.621 Type 2 diabetes mellitus with foot ulcer (principal); L97.412 Non-pressure chronic ulcer of right heel and midfoot with fat layer exposed | CPT/HCPCS: G0463 ==

== ENCOUNTER 2024-08-03 15:24 | Outpatient (OUT) | payer MEDICARE, SELFPAY | END 2024-08-03 15:25 | disposition home or self-care (01) | LOC: WC 15:24 | PROVIDERS: PCP Internal Medicine; Visit Provider Physician Assistant | DX: E11.621 Type 2 diabetes mellitus with foot ulcer (principal); L97.412 Non-pressure chronic ulcer of right heel and midfoot with fat layer exposed | CPT/HCPCS: G0463 ==

== ENCOUNTER 2024-08-23 14:13 | Outpatient (OUT) | payer MEDICARE, SELFPAY | END 2024-08-23 14:14 | disposition home or self-care (01) | LOC: WC 14:15 | PROVIDERS: PCP Internal Medicine; Visit Provider Physician Assistant | DX: E11.621 Type 2 diabetes mellitus with foot ulcer (principal); L97.412 Non-pressure chronic ulcer of right heel and midfoot with fat layer exposed | CPT/HCPCS: 11042 ==

== ENCOUNTER 2024-09-14 14:00 | Outpatient (OUT) | payer MEDICARE, SELFPAY | END 2024-09-14 14:01 | disposition home or self-care (01) | LOC: WC 09-21 07:24 | PROVIDERS: PCP Internal Medicine; Visit Provider Physician Assistant | DX: E11.621 Type 2 diabetes mellitus with foot ulcer (principal); L97.412 Non-pressure chronic ulcer of right heel and midfoot with fat layer exposed | CPT/HCPCS: A6213; G0463 ==